=== PATIENT | female | born 1950 | race Caucasian/White ===

== ENCOUNTER 2017-08-26 23:51 | Emergency (ER) | payer OTHER ==
[~2017-08-26] VITALS: Ht 170.2 cm; Wt 108.9 kg
[~2017-08-26 23:51] MED LIST: ACYC200 PO; ALBU3IS INH; ALBU90I INH; ALPR.5 PO; AMOCLA875 PO; AMOX500 PO; ASPI325 PO; ASPI81CH PO; ASPI81EC; ASPI81EC PO; ATOR20 PO; ATOR40TA; ATOR40TA PO; Albuterol Sulf8.5 GM IH; BACL10 PO; BENTYL10 MG PO; BENTYL20 MG PO; BUPR100 PO; BUPR100ER PO; BUPR150ER; BUPR150T2; BUTASPCAF PO; CALCAVITD PO; CALCAVITDA PO; CALGLU500 PO; CARB50 PO; CEPH500 PO; CHOL10002 PO; CIMETIDINE; CIPR500 PO; CLIN300 PO; CLOP75; CLOP75 PO; CODBUTACEC; CYCL10 MT; CYCL10 PO; DIAZ2 PO; DIAZ5 PO; DICY20; DICY20 PO; DIGO.125 PO; DIGO.25; DIGO.25 PO; DIPATR PO; DIPH50 PO; DOXY100 PO; DULO30 PO; ELIQUIS5 MG PO; ESCI10; EZET10-40 PO; FISH1000 PO; FLORINEF PO; FLUD.1; FLUD.1 PO; FOLI1 PO; HYDACE5 PO; HYDACE5325; HYDACE5325 PO; HYDACE7.5 PO; HYDMOR2 PO; HYDR1TAB94 PO; HYOS.125 SL; IBUP800 PO; LEVSOD100 PO; LEVSOD175 PO; LEVSOD200; LEVSOD200 PO; LOVA40; MESA400ER; META800; META800 PO; METCAR500 PO; METO100; METO100 PO; METO25; METO25ER; METO50 PO; METO50ER; METO50ER PO; METPRE4DP PO; METTREX2.5 SC; MULVITA PO; MULVITB&C PO; MULVITMIND PO; NITR.4SL SL; NITR100CA PO; NYST100SU MT; NYST100TC TOP; NYST100TO TOP; Norco 10-325 T1 EACH PO; OMEGA 3 FATTY ACIDS; OMEP20ER PO; ONDA4 PO; ONDA4ODT MM; OXYACE5T; OXYACE5T PO; OXYACE7.5T PO; PENVK500 PO; PRED20 PO; PREDNISONE; PROAIR RESPICL90 MCG INH; PROC10 PO; PROM25 PO; RASUVO 3030 MG/0.6 SC; RXCYCL10 PO; RXERYTOPTH OP; RXHYDMOR2 PO; RXONDA4ODT MM; RXOXYACE PO; Robaxin-750750 MG PO; SIMV10; SIMV40; SIMV40 PO; SIMV80 PO; STOMUL PO; TRAZ100 PO; TRAZ150T57 PO; TRAZODONE HCL; TRIA80TC TOP; VENL150ER PO; VENL75ER PO; Ventolin Soln3 ML INH; [UNRECOGNIZED DRUG - REMARK]
[2017-08-27] MEDS ORDERED: METTREX2.5 (00:08)
[2017-08-27 00:20] LABS: BASOPHILS ABSOLUTE AUTO 0.07 K/mm3 (0.00-0.23); BASOPHILS PERCENT AUTO 1 % (0-2); EOSINOPHILS ABSOLUTE AUTO 0.25 K/mm3 (0.00-0.68); EOSINOPHILS PERCENT AUTO 3 % (0-6); Hematocrit 38.6 % (33.0-51.0); Hemoglobin 13.3 g/dL (11.5-16.0); IMMATURE GRAN ABSOLUTE AUTO 0.03 K/mm3 (0.00-0.10); IMMATURE GRAN PERCENT AUTO 0 % (0-1); LYMPHOCYTES ABSOLUTE AUTO 2.17 K/mm3 (0.84-5.20); LYMPHOCYTES PERCENT AUTO 25 % (21-46); MONOCYTES ABSOLUTE AUTO 0.64 K/mm3 (0.16-1.47); MONOCYTES PERCENT AUTO 7 % (4-13); Mean Corpuscular HGB 32.2 pg (26.0-34.0); Mean Corpuscular HGB Conc 34.5 g/dL (31.5-36.5); Mean Corpuscular Volume 94 fL (80-100); Mean Platelet Volume 9.8 fL (9.1-12.4); NEUTROPHILS ABSOLUTE AUTO 5.46 K/mm3 (1.96-9.15); NEUTROPHILS PERCENT AUTO 63 % (41-73); Platelet Count 319 K/mm3 (150-400); RDW Coefficient Variation 12.8 % (11.7-14.2); RDW Standard Deviation 43.8 fL (35.1-46.3); Red Blood Cell Count 4.13 M/mm3 (3.80-5.20); White Blood Cell Count 8.62 K/mm3 (4.00-11.30)
[2017-08-27 00:41] LABS: Alanine Aminotransfer (ALT/SGP 32 U/L (12-78); Albumin, Blood 3.6 g/dL (3.4-5.0); Albumin/Globulin Ratio 0.9 (0.8-1.8); Alk Phos 59 U/L (50-136); Anion Gap 10 mmol/L (6-16); Aspartate Aminotrans (AST/SGOT 21 U/L (12-37); Bilirubin, Total 0.3 mg/dL (0.1-1.0); Blood Urea Nitrogen 25 mg/dL (8-24); Bun/Creatinine Ratio 19.7 (12.0-20.0); CO2, Blood 22 mmol/L (21-32); Calcium, Blood 8.6 mg/dL (8.5-10.1); Chloride, Blood 104 mmol/L (98-108); Creatinine, Blood 1.27 mg/dL (0.40-1.00); Globulin, Blood 4.2 g/dL (2.2-4.0); Glomerular Filtration Rate 45 (60-); Glucose, Blood 105 mg/dL (70-99); Potassium, Blood 4.5 mmol/L (3.5-5.5); Sodium, Blood 136 mmol/L (136-145); Total Protein, Blood 7.8 g/dL (6.4-8.2); Troponin I <0.015 ng/mL (0.000-0.040)
[2017-08-27] MEDS ORDERED: Protonix40 MG PO (01:02)
== END 2017-08-27 01:44 | disposition home or self-care (01) ==
LOC: ER 23:51
PROVIDERS: Emergency Medicine
DX: I95.1 Orthostatic hypotension (principal); E86.0 Dehydration; K21.9 Gastro-esophageal reflux disease without esophagitis; I48.91 Unspecified atrial fibrillation; E03.9 Hypothyroidism, unspecified; J45.909 Unspecified asthma, uncomplicated; E78.00 Pure hypercholesterolemia, unspecified; Z88.2 Allergy status to sulfonamides; Z88.8 Allergy status to other drugs, medicaments and biological substances; Z88.1 Allergy status to other antibiotic agents; Z91.09 Other allergy status, other than to drugs and biological substances; Z91.030 Bee allergy status; Z79.899 Other long term (current) drug therapy; Z86.73 Personal history of transient ischemic attack (TIA), and cerebral infarction without residual deficits; Z87.891 Personal history of nicotine dependence; W19.XXXA Unspecified fall, initial encounter; Y92.512 Supermarket, store or market as the place of occurrence of the external cause
CPT/HCPCS: 36415; 71046; 80053; 84484; 85025; 93005; 93010; 96360; 99284; J7030

== ENCOUNTER 2017-09-12 20:16 | Emergency (ER) | payer OTHER ==
[~2017-09-12] VITALS: Ht 170.2 cm; Wt 108.9 kg
[~2017-09-12 20:16] MED LIST changes: +METTREX2.5; +Protonix40 MG PO
[2017-09-12 21:04] LABS: BASOPHILS ABSOLUTE AUTO 0.07 K/mm3 (0.00-0.23); BASOPHILS PERCENT AUTO 1 % (0-2); RDW Coefficient Variation 12.6 % (11.7-14.2)
[2017-09-12 21:05] LABS: Source, Urine Clean Catch
[2017-09-12 21:15] LABS: Bilirubin, Urine Neg (Neg); Blood, Urine Neg (Neg); Glucose Qualitative, Urine Neg (Neg); Ketones, Urine Neg (Neg); Leukocyte Esterase, Urine Neg (Neg); Nitrite, Urine Neg (Neg); Protein, Urine Neg (Neg); Specific Gravity, Urine 1.025 (1.003-1.022); Urobilinogen, Urine NORM (Normal)
[2017-09-12 21:17] LABS: EOSINOPHILS ABSOLUTE AUTO 0.17 K/mm3 (0.00-0.68); EOSINOPHILS PERCENT AUTO 2 % (0-6); Hematocrit 42.1 % (33.0-51.0); IMMATURE GRAN ABSOLUTE AUTO 0.05 K/mm3 (0.00-0.10); IMMATURE GRAN PERCENT AUTO 1 % (0-1); LYMPHOCYTES ABSOLUTE AUTO 1.71 K/mm3 (0.84-5.20); LYMPHOCYTES PERCENT AUTO 16 % (21-46); MONOCYTES ABSOLUTE AUTO 0.54 K/mm3 (0.16-1.47); MONOCYTES PERCENT AUTO 5 % (4-13); Mean Corpuscular HGB 31.8 pg (26.0-34.0); Mean Corpuscular HGB Conc 33.3 g/dL (31.5-36.5); Mean Corpuscular Volume 96 fL (80-100); NEUTROPHILS ABSOLUTE AUTO 8.29 K/mm3 (1.96-9.15); NEUTROPHILS PERCENT AUTO 77 % (41-73); Platelet Count 326 K/mm3 (150-400); RDW Standard Deviation 43.8 fL (35.1-46.3); White Blood Cell Count 10.83 K/mm3 (4.00-11.30)
[2017-09-12 21:21] LABS: Appearance, Urine Clear (Clear); Color, Urine Yellow (P-Yellow)
[2017-09-12 21:29] LABS: Albumin, Blood 4.1 g/dL (3.4-5.0); Albumin/Globulin Ratio 0.9 (0.8-1.8); Bilirubin, Total 0.3 mg/dL (0.1-1.0); Bun/Creatinine Ratio 17.8 (12.0-20.0); Calcium, Blood 9.6 mg/dL (8.5-10.1); Creatinine, Blood 1.35 mg/dL (0.40-1.00); Globulin, Blood 4.6 g/dL (2.2-4.0); Potassium, Blood 4.2 mmol/L (3.5-5.5); Total Protein, Blood 8.7 g/dL (6.4-8.2)
== END 2017-09-12 22:05 | disposition home or self-care (01) ==
LOC: ER 20:16
PROVIDERS: Emergency Medicine
DX: S06.0X9A Concussion with loss of consciousness of unspecified duration, initial encounter (principal); W22.8XXA Striking against or struck by other objects, initial encounter; Z88.2 Allergy status to sulfonamides; Z88.8 Allergy status to other drugs, medicaments and biological substances; Z88.1 Allergy status to other antibiotic agents; Z91.030 Bee allergy status; Z79.899 Other long term (current) drug therapy; I48.91 Unspecified atrial fibrillation; E03.9 Hypothyroidism, unspecified; J45.909 Unspecified asthma, uncomplicated; E78.00 Pure hypercholesterolemia, unspecified; Z86.73 Personal history of transient ischemic attack (TIA), and cerebral infarction without residual deficits; Z87.891 Personal history of nicotine dependence
CPT/HCPCS: 36415; 70450; 80053; 81003; 85025; 85730; 99284

== ENCOUNTER 2017-10-01 08:06 | Day surgery (SDC) | payer OTHER ==
[~2017-10-01] VITALS: Ht 170.2 cm; Wt 114.2 kg
[2017-10-01] MEDS ORDERED: HYDSUL200 (08:54)
== END 2017-10-01 10:18 | disposition home or self-care (01) ==
LOC: ORSCSDS 08:06
PROVIDERS: Internal Medicine Gastroenterology
PROC: 0DJ08ZZ Inspection of Upper Intestinal Tract, Via Natural or Artificial Opening Endoscopic (ICD-10-PCS; principal; 2017-10-01 09:30)
DX: R10.13 Epigastric pain (principal); E78.5 Hyperlipidemia, unspecified; E03.9 Hypothyroidism, unspecified; I48.91 Unspecified atrial fibrillation; Z95.0 Presence of cardiac pacemaker; Z86.73 Personal history of transient ischemic attack (TIA), and cerebral infarction without residual deficits; Z86.718 Personal history of other venous thrombosis and embolism; F32.9 Major depressive disorder, single episode, unspecified; I10 Essential (primary) hypertension; E66.9 Obesity, unspecified; Z68.39 Body mass index [BMI] 39.0-39.9, adult; Z87.891 Personal history of nicotine dependence; Z79.899 Other long term (current) drug therapy; Z79.01 Long term (current) use of anticoagulants
CPT/HCPCS: J2250; J7120

== ENCOUNTER 2017-10-08 13:46 | Day surgery (SDC) | payer OTHER ==
[~2017-10-08] VITALS: Ht 170 cm; Wt 112.6 kg
[~2017-10-08 13:46] MED LIST changes: +HYDSUL200
== END 2017-10-08 17:15 | disposition home or self-care (01) ==
LOC: ORSCSDS 13:46
PROVIDERS: Internal Medicine Gastroenterology
PROC: 0DB98ZX Excision of Duodenum, Via Natural or Artificial Opening Endoscopic, Diagnostic (ICD-10-PCS; principal; 2017-10-08 15:30)
PROC: 0DB68ZX Excision of Stomach, Via Natural or Artificial Opening Endoscopic, Diagnostic (ICD-10-PCS; principal; 2017-10-08 15:30)
DX: R10.13 Epigastric pain (principal); K29.50 Unspecified chronic gastritis without bleeding; L93.0 Discoid lupus erythematosus; I48.91 Unspecified atrial fibrillation; Z95.9 Presence of cardiac and vascular implant and graft, unspecified; J45.909 Unspecified asthma, uncomplicated; E78.5 Hyperlipidemia, unspecified; E03.9 Hypothyroidism, unspecified; F32.9 Major depressive disorder, single episode, unspecified; Z86.73 Personal history of transient ischemic attack (TIA), and cerebral infarction without residual deficits; Z86.718 Personal history of other venous thrombosis and embolism; M79.7 Fibromyalgia; Z87.891 Personal history of nicotine dependence; Z79.01 Long term (current) use of anticoagulants; Z79.899 Other long term (current) drug therapy
CPT/HCPCS: J7120

== ENCOUNTER 2017-10-24 16:26 | Emergency (ER) | payer OTHER ==
[~2017-10-24] VITALS: Ht 170.2 cm; Wt 113.4 kg
[2017-10-24 17:06] LABS: BASOPHILS ABSOLUTE AUTO 0.07 K/mm3 (0.00-0.23); BASOPHILS PERCENT AUTO 1 % (0-2); EOSINOPHILS ABSOLUTE AUTO 0.16 K/mm3 (0.00-0.68); EOSINOPHILS PERCENT AUTO 2 % (0-6); Hematocrit 36.7 % (33.0-51.0); Hemoglobin 12.2 g/dL (11.5-16.0); IMMATURE GRAN ABSOLUTE AUTO 0.03 K/mm3 (0.00-0.10); IMMATURE GRAN PERCENT AUTO 0 % (0-1); LYMPHOCYTES ABSOLUTE AUTO 1.57 K/mm3 (0.84-5.20); LYMPHOCYTES PERCENT AUTO 20 % (21-46); MONOCYTES ABSOLUTE AUTO 0.56 K/mm3 (0.16-1.47); MONOCYTES PERCENT AUTO 7 % (4-13); Mean Corpuscular HGB 31.6 pg (26.0-34.0); Mean Corpuscular HGB Conc 33.2 g/dL (31.5-36.5); Mean Corpuscular Volume 95 fL (80-100); Mean Platelet Volume 9.9 fL (9.1-12.4); NEUTROPHILS ABSOLUTE AUTO 5.56 K/mm3 (1.96-9.15); NEUTROPHILS PERCENT AUTO 70 % (41-73); Platelet Count 269 K/mm3 (150-400); RDW Coefficient Variation 12.5 % (11.7-14.2); Red Blood Cell Count 3.86 M/mm3 (3.80-5.20); White Blood Cell Count 7.95 K/mm3 (4.00-11.30)
[2017-10-24 17:18] LABS: Albumin, Blood 3.7 g/dL (3.4-5.0); Albumin/Globulin Ratio 0.9 (0.8-1.8); Bilirubin, Total 0.3 mg/dL (0.1-1.0); Bun/Creatinine Ratio 21.1 (12.0-20.0); Calcium, Blood 9.3 mg/dL (8.5-10.1); Creatinine, Blood 1.23 mg/dL (0.40-1.00); Globulin, Blood 3.9 g/dL (2.2-4.0); Potassium, Blood 4.3 mmol/L (3.5-5.5); Total Protein, Blood 7.6 g/dL (6.4-8.2)
[2017-10-24] MEDS ORDERED: Protonix40 MG PO (20:08)
[2017-10-24] MEDS ORDERED: Dazidox10 MG PO (20:08)
== END 2017-10-24 20:20 | disposition home or self-care (01) ==
LOC: ER 16:26
PROVIDERS: Internal Medicine
DX: R10.11 Right upper quadrant pain (principal); G89.29 Other chronic pain; R10.13 Epigastric pain; Z88.2 Allergy status to sulfonamides; Z88.8 Allergy status to other drugs, medicaments and biological substances; Z88.5 Allergy status to narcotic agent; Z91.030 Bee allergy status; Z79.899 Other long term (current) drug therapy; Z79.2 Long term (current) use of antibiotics; I48.91 Unspecified atrial fibrillation; G43.909 Migraine, unspecified, not intractable, without status migrainosus; E03.9 Hypothyroidism, unspecified; J45.909 Unspecified asthma, uncomplicated; E78.00 Pure hypercholesterolemia, unspecified; Z87.891 Personal history of nicotine dependence
CPT/HCPCS: 36415; 74176; 80053; 83690; 85025; 96374; 96375; 99284; J0780; J1200; J3010

== ENCOUNTER 2017-11-17 20:13 | Emergency (ER) | payer OTHER ==
[~2017-11-17] VITALS: Ht 170.2 cm; Wt 113.4 kg
[~2017-11-17 20:13] MED LIST changes: +Dazidox10 MG PO
[2017-11-17 21:22] LABS: BASOPHILS ABSOLUTE AUTO 0.08 K/mm3 (0.00-0.23); BASOPHILS PERCENT AUTO 1 % (0-2); EOSINOPHILS ABSOLUTE AUTO 0.25 K/mm3 (0.00-0.68); EOSINOPHILS PERCENT AUTO 3 % (0-6); Hematocrit 37.3 % (33.0-51.0); Hemoglobin 12.4 g/dL (11.5-16.0); IMMATURE GRAN ABSOLUTE AUTO 0.04 K/mm3 (0.00-0.10); IMMATURE GRAN PERCENT AUTO 1 % (0-1); LYMPHOCYTES ABSOLUTE AUTO 1.61 K/mm3 (0.84-5.20); LYMPHOCYTES PERCENT AUTO 21 % (21-46); MONOCYTES ABSOLUTE AUTO 0.64 K/mm3 (0.16-1.47); MONOCYTES PERCENT AUTO 8 % (4-13); Mean Corpuscular HGB 32.1 pg (26.0-34.0); Mean Corpuscular HGB Conc 33.2 g/dL (31.5-36.5); Mean Corpuscular Volume 97 fL (80-100); Mean Platelet Volume 9.9 fL (9.1-12.4); NEUTROPHILS ABSOLUTE AUTO 5.17 K/mm3 (1.96-9.15); NEUTROPHILS PERCENT AUTO 66 % (41-73); Platelet Count 295 K/mm3 (150-400); RDW Coefficient Variation 13.3 % (11.7-14.2); RDW Standard Deviation 46.9 fL (35.1-46.3); Red Blood Cell Count 3.86 M/mm3 (3.80-5.20); White Blood Cell Count 7.79 K/mm3 (4.00-11.30)
[2017-11-17 21:41] LABS: Albumin, Blood 3.5 g/dL (3.4-5.0); Albumin/Globulin Ratio 0.8 (0.8-1.8); Bilirubin, Total 0.1 mg/dL (0.1-1.0); Bun/Creatinine Ratio 19.5 (12.0-20.0); Creatinine, Blood 1.33 mg/dL (0.40-1.00); Globulin, Blood 4.3 g/dL (2.2-4.0); Potassium, Blood 4.5 mmol/L (3.5-5.5); Total Protein, Blood 7.8 g/dL (6.4-8.2)
== END 2017-11-17 23:35 | disposition home or self-care (01) ==
LOC: ER 20:13
PROVIDERS: Emergency Medicine
DX: K55.1 Chronic vascular disorders of intestine (principal); I48.91 Unspecified atrial fibrillation; E03.9 Hypothyroidism, unspecified; J45.909 Unspecified asthma, uncomplicated; E78.00 Pure hypercholesterolemia, unspecified; Z86.73 Personal history of transient ischemic attack (TIA), and cerebral infarction without residual deficits; Z88.2 Allergy status to sulfonamides; Z88.8 Allergy status to other drugs, medicaments and biological substances; Z88.1 Allergy status to other antibiotic agents; Z91.09 Other allergy status, other than to drugs and biological substances; Z88.5 Allergy status to narcotic agent; Z91.030 Bee allergy status; Z79.899 Other long term (current) drug therapy; Z87.891 Personal history of nicotine dependence
CPT/HCPCS: 36415; 80053; 83605; 83690; 85025; 96361; 96374; 96375; 99284; J2765; J3010; J7030

== ENCOUNTER 2017-11-29 13:18 | Day surgery (SDC) | payer OTHER ==
[~2017-11-29] VITALS: Ht 170.2 cm; Wt 51.7 kg
[2017-11-29] MEDS ORDERED: METO100ER (13:43)
[2017-11-29] MEDS ORDERED: PROM25 (13:44)
== END 2017-11-29 15:02 | disposition home or self-care (01) ==
LOC: ORSCSDS 13:18
PROVIDERS: Internal Medicine Gastroenterology
PROC: 0DBL8ZX Excision of Transverse Colon, Via Natural or Artificial Opening Endoscopic, Diagnostic (ICD-10-PCS; principal; 2017-11-29 14:45)
DX: R10.84 Generalized abdominal pain (principal); D12.3 Benign neoplasm of transverse colon; K64.8 Other hemorrhoids; K57.30 Diverticulosis of large intestine without perforation or abscess without bleeding; Z83.71 Family history of colonic polyps; M32.9 Systemic lupus erythematosus, unspecified; I48.91 Unspecified atrial fibrillation; J45.909 Unspecified asthma, uncomplicated; E78.5 Hyperlipidemia, unspecified; E03.9 Hypothyroidism, unspecified; F32.9 Major depressive disorder, single episode, unspecified; Z86.73 Personal history of transient ischemic attack (TIA), and cerebral infarction without residual deficits; Z86.718 Personal history of other venous thrombosis and embolism; M79.7 Fibromyalgia; Z87.891 Personal history of nicotine dependence; Z79.01 Long term (current) use of anticoagulants; Z79.899 Other long term (current) drug therapy
CPT/HCPCS: 88305; J7120

== ENCOUNTER 2018-01-06 20:38 | Observation (INO) | payer OTHER ==
[~2018-01-06] VITALS: Ht 170.2 cm; Wt 114.5 kg
[~2018-01-06 20:38] MED LIST changes: -HYDSUL200; +HYDSUL200 PO; +METO100ER PO; +PROM25
[2018-01-06 21:36] LABS: BASOPHILS ABSOLUTE AUTO 0.06 K/mm3 (0.00-0.23); BASOPHILS PERCENT AUTO 1 % (0-2); EOSINOPHILS ABSOLUTE AUTO 0.25 K/mm3 (0.00-0.68); EOSINOPHILS PERCENT AUTO 3 % (0-6); Hematocrit 38.5 % (33.0-51.0); Hemoglobin 13.1 g/dL (11.5-16.0); IMMATURE GRAN ABSOLUTE AUTO 0.03 K/mm3 (0.00-0.10); IMMATURE GRAN PERCENT AUTO 0 % (0-1); LYMPHOCYTES ABSOLUTE AUTO 2.14 K/mm3 (0.84-5.20); LYMPHOCYTES PERCENT AUTO 24 % (21-46); MONOCYTES PERCENT AUTO 4 % (4-13); Mean Corpuscular HGB 32.3 pg (26.0-34.0); Mean Corpuscular Volume 95 fL (80-100); Mean Platelet Volume 9.4 fL (9.1-12.4); NEUTROPHILS ABSOLUTE AUTO 6.18 K/mm3 (1.96-9.15); NEUTROPHILS PERCENT AUTO 68 % (41-73); Platelet Count 347 K/mm3 (150-400); Red Blood Cell Count 4.06 M/mm3 (3.80-5.20); White Blood Cell Count 9.06 K/mm3 (4.00-11.30)
[2018-01-06 21:55] LABS: Alanine Aminotransfer (ALT/SGP 32 U/L (12-78); Albumin, Blood 3.7 g/dL (3.4-5.0); Albumin/Globulin Ratio 0.9 (0.8-1.8); Alk Phos 53 U/L (50-136); Anion Gap 11 mmol/L (6-16); Aspartate Aminotrans (AST/SGOT 23 U/L (12-37); Bilirubin, Total 0.2 mg/dL (0.1-1.0); Blood Urea Nitrogen 24 mg/dL (8-24); Bun/Creatinine Ratio 21.1 (12.0-20.0); CO2, Blood 22 mmol/L (21-32); Chloride, Blood 104 mmol/L (98-108); Creatinine, Blood 1.14 mg/dL (0.40-1.00); Globulin, Blood 4.2 g/dL (2.2-4.0); Glomerular Filtration Rate 51 (60-); Glucose, Blood 135 mg/dL (70-99); Potassium, Blood 4.1 mmol/L (3.5-5.5); Sodium, Blood 137 mmol/L (136-145); Total Protein, Blood 7.9 g/dL (6.4-8.2)
[2018-01-06 23:58] LABS: Source, Urine Clean Catch
[2018-01-07 00:06] LABS: Bilirubin, Urine Neg (Neg); Blood, Urine Neg (Neg); Glucose Qualitative, Urine Neg (Neg); Ketones, Urine Neg (Neg); Leukocyte Esterase, Urine Neg (Neg); Nitrite, Urine Neg (Neg); Protein, Urine Neg (Neg); Specific Gravity, Urine 1.015 (1.003-1.022); Urobilinogen, Urine NORM (Normal)
[2018-01-07 00:08] LABS: Appearance, Urine Clear (Clear); Color, Urine Yellow (P-Yellow)
[2018-01-07 01:01] LABS: CHOL/HDL RATIO 4.5; Cholesterol 181 mg/dL (50-200); HDL Cholesterol 40 mg/dL (>39); LDL/HDL RATIO 1.6; Low Density Lipoprotein Chol 65 mg/dL (0-110); Triglycerides 379 mg/dL (30-160); Very Low Density Lipoprot Chol 75 mg/dL (6-32)
[2018-01-07] MEDS ORDERED: OXYC5 (01:55)
[2018-01-07 04:43] LABS: Hemoglobin 11.8 g/dL (11.5-16.0); Mean Corpuscular HGB 32.1 pg (26.0-34.0); Mean Corpuscular HGB Conc 32.8 g/dL (31.5-36.5); Mean Platelet Volume 9.5 fL (9.1-12.4); Platelet Count 257 K/mm3 (150-400); RDW Coefficient Variation 12.9 % (11.7-14.2); RDW Standard Deviation 46.5 fL (35.1-46.3); Red Blood Cell Count 3.68 M/mm3 (3.80-5.20); White Blood Cell Count 8.57 K/mm3 (4.00-11.30)
[2018-01-07 04:46] LABS: Mean Corpuscular Volume 98 fL (80-100)
[2018-01-07 05:14] LABS: Albumin, Blood 3.2 g/dL (3.4-5.0); Albumin/Globulin Ratio 0.9 (0.8-1.8); Bilirubin, Total 0.2 mg/dL (0.1-1.0); Bun/Creatinine Ratio 19.4 (12.0-20.0); Calcium, Blood 8.4 mg/dL (8.5-10.1); Creatinine, Blood 1.03 mg/dL (0.40-1.00); Globulin, Blood 3.7 g/dL (2.2-4.0); Potassium, Blood 4.2 mmol/L (3.5-5.5); Total Protein, Blood 6.9 g/dL (6.4-8.2)
[2018-01-08 04:17] LABS: BASOPHILS ABSOLUTE AUTO 0.05 K/mm3 (0.00-0.23); BASOPHILS PERCENT AUTO 1 % (0-2); EOSINOPHILS ABSOLUTE AUTO 0.33 K/mm3 (0.00-0.68); EOSINOPHILS PERCENT AUTO 4 % (0-6); Hematocrit 35.2 % (33.0-51.0); Hemoglobin 11.6 g/dL (11.5-16.0); IMMATURE GRAN ABSOLUTE AUTO 0.02 K/mm3 (0.00-0.10); IMMATURE GRAN PERCENT AUTO 0 % (0-1); LYMPHOCYTES ABSOLUTE AUTO 1.84 K/mm3 (0.84-5.20); LYMPHOCYTES PERCENT AUTO 24 % (21-46); MONOCYTES ABSOLUTE AUTO 0.52 K/mm3 (0.16-1.47); MONOCYTES PERCENT AUTO 7 % (4-13); Mean Corpuscular HGB 31.5 pg (26.0-34.0); Mean Corpuscular Volume 96 fL (80-100); Mean Platelet Volume 9.3 fL (9.1-12.4); NEUTROPHILS ABSOLUTE AUTO 4.91 K/mm3 (1.96-9.15); NEUTROPHILS PERCENT AUTO 64 % (41-73); Platelet Count 239 K/mm3 (150-400); RDW Standard Deviation 45.2 fL (35.1-46.3); Red Blood Cell Count 3.68 M/mm3 (3.80-5.20); White Blood Cell Count 7.67 K/mm3 (4.00-11.30)
[2018-01-08 04:32] LABS: International Normalized Ratio 1.05; Prothrombin Time Results 10.8 Sec (9.7-11.5)
[2018-01-08 04:43] LABS: Alanine Aminotransfer (ALT/SGP 27 U/L (12-78); Albumin, Blood 3.4 g/dL (3.4-5.0); Albumin/Globulin Ratio 0.9 (0.8-1.8); Alk Phos 47 U/L (50-136); Anion Gap 7 mmol/L (6-16); Aspartate Aminotrans (AST/SGOT 22 U/L (12-37); Bilirubin, Total 0.4 mg/dL (0.1-1.0); Blood Urea Nitrogen 14 mg/dL (8-24); CO2, Blood 26 mmol/L (21-32); Calcium, Blood 8.6 mg/dL (8.5-10.1); Chloride, Blood 106 mmol/L (98-108); Creatinine, Blood 0.93 mg/dL (0.40-1.00); Globulin, Blood 3.9 g/dL (2.2-4.0); Glomerular Filtration Rate >60 (60-); Glucose, Blood 85 mg/dL (70-99); Sodium, Blood 139 mmol/L (136-145); Total Protein, Blood 7.3 g/dL (6.4-8.2)
[2018-01-09 05:05] LABS: BASOPHILS ABSOLUTE AUTO 0.03 K/mm3 (0.00-0.23); BASOPHILS PERCENT AUTO 0 % (0-2); EOSINOPHILS ABSOLUTE AUTO 0.19 K/mm3 (0.00-0.68); EOSINOPHILS PERCENT AUTO 2 % (0-6); Hematocrit 34.4 % (33.0-51.0); Hemoglobin 11.1 g/dL (11.5-16.0); IMMATURE GRAN ABSOLUTE AUTO 0.03 K/mm3 (0.00-0.10); IMMATURE GRAN PERCENT AUTO 0 % (0-1); LYMPHOCYTES ABSOLUTE AUTO 1.74 K/mm3 (0.84-5.20); LYMPHOCYTES PERCENT AUTO 21 % (21-46); MONOCYTES PERCENT AUTO 7 % (4-13); Mean Corpuscular HGB Conc 32.3 g/dL (31.5-36.5); Mean Corpuscular Volume 96 fL (80-100); Mean Platelet Volume 9.8 fL (9.1-12.4); NEUTROPHILS ABSOLUTE AUTO 5.72 K/mm3 (1.96-9.15); NEUTROPHILS PERCENT AUTO 69 % (41-73); Platelet Count 250 K/mm3 (150-400); RDW Coefficient Variation 12.8 % (11.7-14.2); RDW Standard Deviation 45.1 fL (35.1-46.3); Red Blood Cell Count 3.58 M/mm3 (3.80-5.20); White Blood Cell Count 8.31 K/mm3 (4.00-11.30)
[2018-01-09 05:22] LABS: Albumin/Globulin Ratio 0.9 (0.8-1.8); Bilirubin, Total 0.3 mg/dL (0.1-1.0); Bun/Creatinine Ratio 13.2 (12.0-20.0); Calcium, Blood 8.3 mg/dL (8.5-10.1); Creatinine, Blood 1.06 mg/dL (0.40-1.00); Globulin, Blood 3.5 g/dL (2.2-4.0); Potassium, Blood 4.1 mmol/L (3.5-5.5); Total Protein, Blood 6.5 g/dL (6.4-8.2)
[2018-01-09] MEDS ORDERED: MILK OF MAGNESIA PO (10:44)
== END 2018-01-09 11:35 | disposition home or self-care (01) ==
LOC: ER 20:38 → SURS 01-07 00:23
PROVIDERS: Emergency Medicine; Internal Medicine; Surgery
PROC: 0FT44ZZ Resection of Gallbladder, Percutaneous Endoscopic Approach (ICD-10-PCS; principal; 2018-01-06)
PROC: BF03YZZ Plain Radiography of Gallbladder and Bile Ducts using Other Contrast (ICD-10-PCS; 2018-01-06)
DX: K81.1 Chronic cholecystitis (principal); K85.90 Acute pancreatitis without necrosis or infection, unspecified; N18.2 Chronic kidney disease, stage 2 (mild); I48.0 Paroxysmal atrial fibrillation; R74.8 Abnormal levels of other serum enzymes; M35.00 Sjogren syndrome, unspecified; M06.9 Rheumatoid arthritis, unspecified; I49.5 Sick sinus syndrome; I73.9 Peripheral vascular disease, unspecified; F17.210 Nicotine dependence, cigarettes, uncomplicated; Z86.73 Personal history of transient ischemic attack (TIA), and cerebral infarction without residual deficits; Z79.899 Other long term (current) drug therapy; Z88.1 Allergy status to other antibiotic agents; Z88.2 Allergy status to sulfonamides; Z91.041 Radiographic dye allergy status; Z88.8 Allergy status to other drugs, medicaments and biological substances; Z79.01 Long term (current) use of anticoagulants
CPT/HCPCS: 36415; 74300; 76705; 80053; 80061; 81003; 83605; 83690; 85025; 85027; 85610; 88304; 93005; 93010; 94760; 96361; 96372; 96374; 96375; 96376; 99285-25; C1729; C9113; G0378; J0694; J1200; J1650; J1720; J1885; J2550; J2710; J2765; J3010; J7030; J7120

== ENCOUNTER 2018-06-05 18:08 | Emergency (ER) | payer MEDICARE ==
[~2018-06-05] VITALS: Ht 170.2 cm; Wt 106.6 kg
[~2018-06-05 18:08] MED LIST changes: +LIDO700A20 TOP; +MILK OF MAGNESIA PO; +OXYC5; +Percocet 5-3251 EACH PO
[2018-06-05 19:04] LABS: BASOPHILS ABSOLUTE AUTO 0.07 K/mm3 (0.00-0.23); BASOPHILS PERCENT AUTO 1 % (0-2); EOSINOPHILS ABSOLUTE AUTO 0.28 K/mm3 (0.00-0.68); EOSINOPHILS PERCENT AUTO 3 % (0-6); Hematocrit 40.1 % (33.0-51.0); Hemoglobin 13.4 g/dL (11.5-16.0); IMMATURE GRAN ABSOLUTE AUTO 0.03 K/mm3 (0.00-0.10); IMMATURE GRAN PERCENT AUTO 0 % (0-1); LYMPHOCYTES ABSOLUTE AUTO 1.58 K/mm3 (0.84-5.20); LYMPHOCYTES PERCENT AUTO 16 % (21-46); MONOCYTES ABSOLUTE AUTO 0.65 K/mm3 (0.16-1.47); MONOCYTES PERCENT AUTO 7 % (4-13); Mean Corpuscular HGB 32.4 pg (26.0-34.0); Mean Corpuscular HGB Conc 33.4 g/dL (31.5-36.5); Mean Corpuscular Volume 97 fL (80-100); Mean Platelet Volume 9.8 fL (9.1-12.4); NEUTROPHILS ABSOLUTE AUTO 7.01 K/mm3 (1.96-9.15); NEUTROPHILS PERCENT AUTO 73 % (41-73); Platelet Count 286 K/mm3 (150-400); RDW Coefficient Variation 13.4 % (11.7-14.2); RDW Standard Deviation 47.8 fL (35.1-46.3); Red Blood Cell Count 4.13 M/mm3 (3.80-5.20); White Blood Cell Count 9.62 K/mm3 (4.00-11.30)
[2018-06-05 19:47] LABS: Albumin, Blood 3.7 g/dL (3.4-5.0); Albumin/Globulin Ratio 0.9 (0.8-1.8); Bilirubin, Total 0.2 mg/dL (0.1-1.0); Bun/Creatinine Ratio 16.9 (12.0-20.0); Calcium, Blood 8.6 mg/dL (8.5-10.1); Creatinine, Blood 1.18 mg/dL (0.40-1.00); Globulin, Blood 4.1 g/dL (2.2-4.0); Potassium, Blood 4.1 mmol/L (3.5-5.5); Total Protein, Blood 7.8 g/dL (6.4-8.2)
[2018-06-05] MEDS ORDERED: METPRE4DP PO (23:13)
== END 2018-06-05 23:32 | disposition home or self-care (01) ==
LOC: ER 18:08
PROVIDERS: Physician Assistant
DX: K62.5 Hemorrhage of anus and rectum (principal); Z88.2 Allergy status to sulfonamides; Z91.030 Bee allergy status; Z88.1 Allergy status to other antibiotic agents; Z88.5 Allergy status to narcotic agent; Z79.899 Other long term (current) drug therapy; G43.909 Migraine, unspecified, not intractable, without status migrainosus; I48.91 Unspecified atrial fibrillation; E03.9 Hypothyroidism, unspecified; J45.909 Unspecified asthma, uncomplicated; E78.5 Hyperlipidemia, unspecified; Z86.73 Personal history of transient ischemic attack (TIA), and cerebral infarction without residual deficits; Z87.891 Personal history of nicotine dependence
CPT/HCPCS: 36415; 74176; 80053; 83690; 85025; 86850; 86900; 86901; 93005; 93010; 99284-25

== ENCOUNTER 2018-07-31 10:59 | Inpatient (IN) | payer MEDICARE, OTHER ==
[~2018-07-31] VITALS: Ht 170.2 cm; Wt 107.0 kg
[~2018-07-31 10:59] MED LIST changes: -ACYC200 PO; -ATOR40TA PO; -ELIQUIS5 MG PO; -HYDSUL200 PO; -METO100ER PO; -OXYC5
[2018-07-31 11:47] LABS: BASOPHILS ABSOLUTE AUTO 0.07 K/mm3 (0.00-0.23); BASOPHILS PERCENT AUTO 1 % (0-2); EOSINOPHILS ABSOLUTE AUTO 0.19 K/mm3 (0.00-0.68); EOSINOPHILS PERCENT AUTO 3 % (0-6); Hematocrit 38.8 % (33.0-51.0); Hemoglobin 12.9 g/dL (11.5-16.0); IMMATURE GRAN ABSOLUTE AUTO 0.02 K/mm3 (0.00-0.10); IMMATURE GRAN PERCENT AUTO 0 % (0-1); LYMPHOCYTES ABSOLUTE AUTO 1.12 K/mm3 (0.84-5.20); LYMPHOCYTES PERCENT AUTO 16 % (21-46); MONOCYTES ABSOLUTE AUTO 0.46 K/mm3 (0.16-1.47); MONOCYTES PERCENT AUTO 7 % (4-13); Mean Corpuscular HGB Conc 33.2 g/dL (31.5-36.5); Mean Corpuscular Volume 96 fL (80-100); Mean Platelet Volume 9.4 fL (9.1-12.4); NEUTROPHILS PERCENT AUTO 73 % (41-73); Platelet Count 319 K/mm3 (150-400); RDW Coefficient Variation 13.2 % (11.7-14.2); RDW Standard Deviation 47.4 fL (35.1-46.3); Red Blood Cell Count 4.03 M/mm3 (3.80-5.20); White Blood Cell Count 6.86 K/mm3 (4.00-11.30)
[2018-07-31 12:04] LABS: International Normalized Ratio 1.03; Prothrombin Time Results 10.9 Sec (9.7-11.5)
[2018-07-31 12:09] LABS: Alanine Aminotransfer (ALT/SGP 20 U/L (12-78); Albumin, Blood 3.5 g/dL (3.4-5.0); Albumin/Globulin Ratio 0.9 (0.8-1.8); Alk Phos 59 U/L (50-136); Anion Gap 10 mmol/L (6-16); Aspartate Aminotrans (AST/SGOT 18 U/L (12-37); Bilirubin, Total 0.3 mg/dL (0.1-1.0); Blood Urea Nitrogen 16 mg/dL (8-24); Bun/Creatinine Ratio 17.8 (12.0-20.0); CO2, Blood 22 mmol/L (21-32); Calcium, Blood 8.9 mg/dL (8.5-10.1); Chloride, Blood 109 mmol/L (98-108); Globulin, Blood 3.9 g/dL (2.2-4.0); Glomerular Filtration Rate >60 (60-); Glucose, Blood 92 mg/dL (70-99); Potassium, Blood 4.2 mmol/L (3.5-5.5); Sodium, Blood 141 mmol/L (136-145); Total Protein, Blood 7.4 g/dL (6.4-8.2)
[2018-07-31 12:11] LABS: Source, Urine Clean Catch
[2018-07-31 12:20] LABS: Bilirubin, Urine Neg (Neg); Blood, Urine 1+ (Neg); Glucose Qualitative, Urine Neg (Neg); Ketones, Urine Neg (Neg); Leukocyte Esterase, Urine Neg (Neg); Nitrite, Urine Neg (Neg); Protein, Urine Neg (Neg); Urobilinogen, Urine NORM (Normal)
[2018-07-31 12:46] LABS: Appearance, Urine Clear (Clear); Color, Urine Yellow (P-Yellow)
[2018-07-31 12:49] LABS: Bacteria Few /hpf; Squamous Epithelial Cells Few /hpf (Few); White Blood Cells, Urine 0-2 /hpf (0-5)
[2018-07-31] MEDS ORDERED: **INCOMPLETE MED REC (15:47)
[2018-07-31] MEDS ORDERED: ACYC400 PO (15:49)
[2018-07-31] MEDS ORDERED: ELIQUIS5 MG PO (15:50)
[2018-07-31] MEDS ORDERED: ATOR40TA PO (15:50)
[2018-07-31] MEDS ORDERED: Cymbalta60 MG PO (15:51)
[2018-07-31] MEDS ORDERED: HYDSUL200 PO (15:52)
[2018-07-31] MEDS ORDERED: METO50 PO (15:53)
[2018-07-31] MEDS ORDERED: BACL10 PO (15:58)
[2018-07-31] MEDS ORDERED: OXYC5 PO (16:00)
[2018-07-31] MEDS ORDERED: Amox Tr-K Clv1 EAC2 PO (16:00)
[2018-07-31] MEDS ORDERED: LIDOCAINE1 EACH TOP (16:04)
[2018-07-31 19:53] LABS: Source, Urine Clean Catch
[2018-07-31 20:19] LABS: Bilirubin, Urine Neg (Neg); Blood, Urine 1+ (Neg); Glucose Qualitative, Urine Neg (Neg); Ketones, Urine Neg (Neg); Leukocyte Esterase, Urine Neg (Neg); Nitrite, Urine Neg (Neg); Protein, Urine Neg (Neg); Urobilinogen, Urine NORM (Normal)
[2018-07-31 20:42] LABS: Appearance, Urine Clear (Clear); Bacteria Rare /hpf; Color, Urine Yellow (P-Yellow); Red Blood Cells, Urine 0-2 /hpf (0-2); Squamous Epithelial Cells Few /hpf (Few); White Blood Cells, Urine Rare /hpf (0-5)
[2018-07-31 20:57] LABS: U Amphetamine Screen Not Detected; U Barbituate Screen Not Detected; U Benzodiazapine Screen Not Detected; U Buprenorphine Screen Not Detected; U Cannabinoids Screen Not Detected; U Cocaine Screen Not Detected; U Methadone Screen Not Detected; U Methamphetamine Screen Not Detected; U Opiates Screen Not Detected; U Oxycodone Screen DETECTED; U Phencyclidine Screen Not Detected; U Propoxyphene Screen Not Detected
[2018-07-31] MEDS ORDERED: FOLI1 PO (21:32)
[2018-07-31] MEDS ORDERED: LEVSOD100 PO (21:32)
[2018-07-31] MEDS ORDERED: VENL75ER PO (21:34)
[2018-07-31] MEDS ORDERED: PAROEX473 ML MM (21:37)
[2018-08-01 05:20] LABS: Hematocrit 36.2 % (33.0-51.0); Hemoglobin 11.9 g/dL (11.5-16.0); Mean Corpuscular HGB 32.4 pg (26.0-34.0); Mean Corpuscular HGB Conc 32.9 g/dL (31.5-36.5); Mean Platelet Volume 9.4 fL (9.1-12.4); Platelet Count 272 K/mm3 (150-400); RDW Coefficient Variation 13.3 % (11.7-14.2); RDW Standard Deviation 47.5 fL (35.1-46.3); Red Blood Cell Count 3.67 M/mm3 (3.80-5.20); White Blood Cell Count 6.25 K/mm3 (4.00-11.30)
[2018-08-01 05:23] LABS: Mean Corpuscular Volume 99 fL (80-100)
[2018-08-01 05:46] LABS: Anion Gap 9 mmol/L (6-16); Blood Urea Nitrogen 17 mg/dL (8-24); Bun/Creatinine Ratio 17.9 (12.0-20.0); CO2, Blood 22 mmol/L (21-32); Calcium, Blood 8.6 mg/dL (8.5-10.1); Chloride, Blood 110 mmol/L (98-108); Creatinine, Blood 0.95 mg/dL (0.40-1.00); Glomerular Filtration Rate >60 (60-); Glucose, Blood 91 mg/dL (70-99); Potassium, Blood 4.1 mmol/L (3.5-5.5); Sodium, Blood 141 mmol/L (136-145)
--- NOTE | 2018-08-01 07:36 | NUR ---
SHIFT SUMMARY PT SLEPT WELL T/O NIGHT. AOX4. IS NON-VERBAL BUT IS ABLE TO WRITE DOWN ANSWERS TO QUESTIONS & FOLLOW DIRECTIONS. VSS. DENIES SOB OR N/V. REPORTED 9/10 PAIN IN LOWER BACK/LUMBAR THIS AM & HAD DR. GRAMAJO CHANGE OXYCODONE TO 10MG WHICH IS HER HOME DOSE & ALSO ORDERED KPAD SINCE PT USUALLY USES A HEAT PAD @HOME. WHEN JUSTICE REASSESSED PT STATED PAIN HAD DROPPED TO A 5/10. PT RLE IS VERY WEAK W/PEDAL PUSHES COMPARED TO LLE. RUE DIETITIAN CHIEF ARE ONLY SLIGHLY WEAKER THAN LUE. PT HAS BEEN CONTINENT OF URINE & IS 1 ASSIST TO BSC. CALL LIGHT IS IN REACH & PT USES IT APPROPRIATELY.
[2018-08-01 14:41] LABS: CHOL/HDL RATIO 3.6; Cholesterol 148 mg/dL (50-200); HDL Cholesterol 41 mg/dL (>39); LDL/HDL RATIO 1.9; Low Density Lipoprotein Chol 78 mg/dL (0-110); Triglycerides 146 mg/dL (30-160); Very Low Density Lipoprot Chol 29 mg/dL (6-32)
--- NOTE | 2018-08-01 17:33 | NUR ---
SHIFT SUMMARY PATIENT A&O X4. NEURO CHECKS Q4 WNL. R SIDED WEAKNESS PRESENT. MEDICATED PER E JUL FOR CHRONIC BACK PAIN. DENIES SOB. PATIENT IS VERBAL THIS SHIFT, STATES SHE WOKE UP AND WAS ABLE TO SPEAK. NO ACUTE CHANGES. RN WILL CONTINUE TO MONITOR.
--- NOTE | 2018-08-02 04:28 | NUR ---
67 year old Female who was hospitalized in [facility] for 12 days dc on signed release for medical records for [facility] & [facility] and dc summary. PT has chronic pain and uses oxycodone and lidocaine patches x 2 to lt lower back and sciatic area baseline. also uses muscle relaxant and neurontin. up with standby assist to ambulate to bathroom several times with steady gait. mild rt ue and rt le weakness on q 8 hour neuro assessment. No problems with speech or swallow noted. PT up several hours after pain medication reading and denies any vision changes. hx of multiple surgeries including pacemaker placement x 4 and back and le orthopedic surgery. 100% AV paced dual chamber rate is in 70.
--- NOTE | 2018-08-02 05:18 | NUR ---
pt continues to co lt low back and lt sciatic pain . roxicodone 10 mg given and had kpad for comfort which popped and pt up to bathroom and had steady gait. no new neuro deficits improving strenght and speech wnl for pt with hx of old cva. await medical records from [facility] recent 12 day stay.
--- NOTE | 2018-08-02 14:02 | NUR ---
TENS UNIT SPOKE WITH P.T. REGARDING A TENS UNIT FOR PT BACK PAIN. PER PT WE DO NOT HAVE ANY IN THE HOSPITAL. DR AVILES NOTIFIED. NO NEW ORDERS
--- NOTE | 2018-08-02 18:10 | NUR ---
NO ACUTE CHANGES, PT REMAINS WITH MILD RIGHT SIDED WEAKNESS, C/O OF ACUTE BACK PAIN. MEDICATED PER EMAR. PT REPORTS SOME RELIEF AFTER SHOWER THIS AFTERNOON. TELE DISCONTINUED TODAY, IV BECAME WET WITH SHOWER AND NON PATENT AFTER SHOWER. REMOVED. INSERTION SITE WNL. NO IV AT THIS TIME. WILL CONTINUE TO MONITOR AND REPORT TO ONCOMING RN.
--- NOTE | 2018-08-03 14:55 | NUR ---
1455 PT CALLING OUT FROM BATHROOM, SITTING ON TOILET, SAYS SHE "LOST CONSIOUSNESS". PT IS MOANING, RESPIRATIONS INCREASED TO 36, BP, HR AND TEMP WNL. PT WANTING TO "SIT ON THE FLOOR". CHAIR PROVIDED AND PT ASSISTED UP FROM TOILET TO CHAIR. PT VERY WEAK, REQUIRED 2 PERSON ASSIST. PT C/O "POUNDING" HEAD, NECK PAIN, AND NAUSEA. 1520 DR AVILES CALLED WHILE PT SITTING IN CHAIR. ORDERS OBTAINED FOR PO ATIVAN. 1528 PT ASSISTED BACK OVER SEVERAL MINUTES SHE WAS NOT BEARING HER WEIGHT WELL, VS WNL EXCEPT RESP WHICH REMAINED ELEVATED. 1536 DR AVILES CALLED AGAIN AND MESSAGE LEFT ON HER VOICE MAIL PT NOT IMRPOVING. 1544 DR AVILES AT BEDSIDE VISITING WITH PT AT THIS TIME.
--- NOTE | 2018-08-03 17:15 | NUR ---
PT CALMER AND IS BEARING WEIGHT AND TRANSFERRING TO BEDSIDE COMMODE. MEDICATED FOR PAIN PER EMAR, NO ATIVAN GIVEN AT THIS TIME. WILL MONITOR
--- NOTE | 2018-08-04 00:52 | NUR ---
CONTINUES TO SHOW NO NEURO DECLINE. DOES HAVE LUPUS AND HX OF L4/L5 BACK FUSION WITH RUPTURED DISKS ABOVE AND BELOW FUSION WITH CHRONIC ACUTE PAIN LT LOWER BACK AND LT SCIATIC AREA.
[2018-08-04] MEDS ORDERED: Venlafaxine HCl75 MG PO (18:17)
[2018-08-04] MEDS ORDERED: ASPI81CH PO (18:18)
--- NOTE | 2018-08-04 18:36 | NUR ---
DISCHARGE PT IS A/O X4, PLEASANT AFFECT. UP TO BR IND TODAY, SHE STATE @ X'S LIGHTHEADED HOWEVER HAS SAT @ EDGE OF BED UNTIL CLEAR BEFORE STANDING. STATE R SIDED WEAKNESS @ BASELINE. STATE FEELS READY TO GO HOME. DR ARTEAGA IN LATE AFTERNOON. STATE OK FOR D/C HOME, PLACE ORDER, NO NEW MEDS. D/C INSTRUCT PROVIDED W EMPHASIS ON F/U W DENTIST R/T RECENT TOOTH EXTRACTION & PAIN @ SITE.
== END 2018-08-04 19:40 | disposition home or self-care (01) | DRG 65 ==
LOC: ER 10:59 → ERHOLD 15:57 → MEDS 17:59
PROVIDERS: Emergency Medicine; Internal Medicine; Nurse Practitioner Acute Care; ADMIT Family Medicine
DX: I63.9 Cerebral infarction, unspecified (principal); K51.90 Ulcerative colitis, unspecified, without complications; G43.909 Migraine, unspecified, not intractable, without status migrainosus; E03.9 Hypothyroidism, unspecified; M19.90 Unspecified osteoarthritis, unspecified site; I73.00 Raynaud's syndrome without gangrene; E66.9 Obesity, unspecified; I48.0 Paroxysmal atrial fibrillation; I10 Essential (primary) hypertension; R47.89 Other speech disturbances; J45.20 Mild intermittent asthma, uncomplicated; M06.9 Rheumatoid arthritis, unspecified; F17.210 Nicotine dependence, cigarettes, uncomplicated; Z88.8 Allergy status to other drugs, medicaments and biological substances; I49.5 Sick sinus syndrome; E06.3 Autoimmune thyroiditis; Z68.36 Body mass index [BMI] 36.0-36.9, adult; R53.1 Weakness; M54.32 Sciatica, left side; R55 Syncope and collapse; Z79.82 Long term (current) use of aspirin
CPT/HCPCS: 36415; 70450; 71046; 80048; 80053; 80061; 81001; 85025; 85027; 85610; 85651; 92507; 92523; 93005; 93010; 93306; 93880; 97162; 97166; 97530; 99285-25

== ENCOUNTER 2018-10-12 17:33 | Observation (INO) | payer MEDICARE, OTHER ==
[~2018-10-12] VITALS: Ht 170.2 cm; Wt 102.3 kg
[~2018-10-12 17:33] MED LIST changes: +**INCOMPLETE MED REC; +ACYC400 PO; +ATOR40TA PO; +Amox Tr-K Clv1 EAC2 PO; +Cymbalta60 MG PO; +ELIQUIS5 MG PO; +HYDSUL200 PO; +LIDOCAINE1 EACH TOP; +OXYC5 PO; +PAROEX473 ML MM; +Venlafaxine HCl75 MG PO
[2018-10-12 18:32] LABS: BASOPHILS ABSOLUTE AUTO 0.07 K/mm3 (0.00-0.23); BASOPHILS PERCENT AUTO 1 % (0-2); EOSINOPHILS ABSOLUTE AUTO 0.26 K/mm3 (0.00-0.68); EOSINOPHILS PERCENT AUTO 3 % (0-6); Hematocrit 40.8 % (33.0-51.0); Hemoglobin 13.5 g/dL (11.5-16.0); IMMATURE GRAN ABSOLUTE AUTO 0.01 K/mm3 (0.00-0.10); IMMATURE GRAN PERCENT AUTO 0 % (0-1); LYMPHOCYTES ABSOLUTE AUTO 1.59 K/mm3 (0.84-5.20); LYMPHOCYTES PERCENT AUTO 21 % (21-46); MONOCYTES ABSOLUTE AUTO 0.59 K/mm3 (0.16-1.47); MONOCYTES PERCENT AUTO 8 % (4-13); Mean Corpuscular HGB 32.1 pg (26.0-34.0); Mean Corpuscular HGB Conc 33.1 g/dL (31.5-36.5); Mean Corpuscular Volume 97 fL (80-100); Mean Platelet Volume 10.1 fL (9.1-12.4); NEUTROPHILS ABSOLUTE AUTO 5.04 K/mm3 (1.96-9.15); NEUTROPHILS PERCENT AUTO 67 % (41-73); Platelet Count 275 K/mm3 (150-400); RDW Coefficient Variation 12.8 % (11.7-14.2); RDW Standard Deviation 45.1 fL (35.1-46.3); Red Blood Cell Count 4.21 M/mm3 (3.80-5.20); White Blood Cell Count 7.56 K/mm3 (4.00-11.30)
[2018-10-12 18:53] LABS: Alanine Aminotransfer (ALT/SGP 30 U/L (12-78); Albumin, Blood 3.6 g/dL (3.4-5.0); Albumin/Globulin Ratio 0.9 (0.8-1.8); Alk Phos 53 U/L (50-136); Anion Gap 5 mmol/L (6-16); Aspartate Aminotrans (AST/SGOT 40 U/L (12-37); Bilirubin, Total 0.3 mg/dL (0.1-1.0); Blood Urea Nitrogen 20 mg/dL (8-24); Bun/Creatinine Ratio 18.9 (12.0-20.0); CO2, Blood 27 mmol/L (21-32); Calcium, Blood 9.1 mg/dL (8.5-10.1); Chloride, Blood 104 mmol/L (98-108); Creatinine, Blood 1.06 mg/dL (0.40-1.00); Globulin, Blood 3.9 g/dL (2.2-4.0); Glomerular Filtration Rate 55 (60-); Glucose, Blood 83 mg/dL (70-99); Potassium, Blood 5.3 mmol/L (3.5-5.5); Sodium, Blood 136 mmol/L (136-145); Total Protein, Blood 7.5 g/dL (6.4-8.2); Troponin I <0.015 ng/mL (0.000-0.040)
[2018-10-12] MEDS ORDERED: TRAZ150T57 (21:02)
--- NOTE | 2018-10-13 07:48 | NUR ---
NOC SHIFT SUMMARY PT ADMITTED THIS NIGHT FOR CHEST PAIN. TROPS NORMAL. DENIES ANY DISCOMFORT OR CHEST PAIN SINCE ADMIT. VSS. PER TELE MONITOR PT IS 100% PACED. DUAL PACED. RATE 77. PLEASANT AND COOPERATIVE WITH CARE. APPEARS IN NO ACUTE DISTRESS. REPORT TO WICHO KC.
[2018-10-13] MEDS ORDERED: BUPROPION HCL200 MG PO (10:37)
--- NOTE | 2018-10-13 17:45 | NUR ---
SHIFT SUMMARY PT AXO, PLEASANT AND COOPERATIVE WITH CARE. PT WAS TO HAVE STRESS TEST TODAY. MATHEWMERT JENN CALLED NURSE TO NOTIFY HER THAT PT COULD EAT BREAKFAST AND THEN TO HOLD LUNCH TRAY UNTIL PT WAS INJECTED FOR STRESS TEST. NURSE NOTIFIED ELEMENTARY SCHOOL REGISTRAR AND ELEMENTARY SCHOOL REGISTRAR AGREED TO HOLD GIVE BREAKFAST TRY AND TO HOLD LUNCH TRAY. THEN AT LUNCH TIME, ELEMENTARY SCHOOL REGISTRAR DELIVERED TRY CONTRARY TO AGREEMENT. PT BEGAN EATING AND WAS DOING SO WHEN KATE GUPTA CAME TO BEGIN STRESS TEST. ELEMENTARY SCHOOL REGISTRAR REPORTS THAT SHE FORGOT. NURSE NOTIFIED DR GARCIA AND CHARGE NURSE. PT HAS BEEN SLEEPING THROUGHOUT THE DAY. PT REPORTS LOWER BACK PAIN, LIDOCAINE PATCH IN PLACE AT THIS TIME. PT DENIES SOB AND NV. PT DENIES CHEST PAIN THIS SHIFT, NO ACUTE CHANGES. PT ON TELE, 100% DUAL PACED. BED IN LOW POSITION, CALL LIGHT WITHIN REACH
--- NOTE | 2018-10-13 19:36 | NUR ---
AT 1845 PT MENTIONED TO NURSE THAT SHE WAS HAVING A MINOR CHEST PAIN. PT ASKED FOR MORPHINE. NURSE ASKED ANOTHER TO MEASURE VITAL SIGNS. AND NOTIFIED CHARGE NURSE WHO CALLED DR GARCIA. NEW ORDERS INTIATED. REPORT GIVEN TO ATTORNEY RECRUITER NURSE WHO ASSUMED CARE AT THAT TIME
--- NOTE | 2018-10-14 04:48 | NUR ---
Rn summary: Patient is alert and oriented. She is up independantly in room to BR. Pt did have episode of chest pain that started at the end of day shift, EKG done, remains the same as previous. Pain is a 4-5/10. Pt was medicated with nitro 4mg SL with relief down to a 2/10 then gone. Pt BP did drop systolic in mid 90's. Ptt medicated with phenergan for nausia with good relief. Patient has rested during the night with no further chestpain. Pt is NPO after 4 for Stress test today. Telemetry shows dual paced rhythm rate 78. Call light in reach.
--- NOTE | 2018-10-14 07:30 | NUR ---
NUC MED STATE PT MAY HAVE BF THEN NPO X WATER FOR STRESS TEST @ 1230. INSTRUCTIONAL SERVICES LIBRARIAN ALERTED. PT INFORMED. SHE STATE NO C/P @ THIS TIME. TELE MX REPORT NO EVENTS ON TELE.
--- NOTE | 2018-10-14 15:59 | NUR ---
SUMMARY PT IS A/O X4, INDEPENDANT IN ROOM. PLEASANT/COOPERATIVE AFFECT. SHE HAS STATED NO CHEST PAIN, NO SOB, NO NAUSEA TODAY. SCHEDULED FOR 1ST PORTION OF CARDIAC STRESS TEST TODAY, STARTED @ 1200 COMPLETED @ 1400 THIS AFTERNOON. SHE HAD LUNCH THEN NAPPING THIS AFTERNOON. NO LONG ACTING NITRATES, NO CAFFEINE AFTER 8PM TONITE. SHE MAY HAVE BF IN AM THEN NPO X WATER. 2ND PORTION STRESS TEST TO BEGIN APPROX 1200 TOMORROW. VSS.
--- NOTE | 2018-10-15 05:43 | NUR ---
SHIFT SUMMARY PT SLEPT FAIR, STATES SHE WAS AWAKE A LOT. NO ACUTE EVENTS NOTED DURING THE NIGHT. MEDICATED X1 FOR PAIN AT BEDTIME. WILL CONTINUE TO MONITOR.
[2018-10-15 12:26] LABS: BASOPHILS ABSOLUTE AUTO 0.07 K/mm3 (0.00-0.23); BASOPHILS PERCENT AUTO 1 % (0-2); EOSINOPHILS ABSOLUTE AUTO 0.28 K/mm3 (0.00-0.68); EOSINOPHILS PERCENT AUTO 4 % (0-6); Hematocrit 38.7 % (33.0-51.0); Hemoglobin 13.1 g/dL (11.5-16.0); IMMATURE GRAN ABSOLUTE AUTO 0.02 K/mm3 (0.00-0.10); IMMATURE GRAN PERCENT AUTO 0 % (0-1); LYMPHOCYTES ABSOLUTE AUTO 0.93 K/mm3 (0.84-5.20); LYMPHOCYTES PERCENT AUTO 13 % (21-46); MONOCYTES ABSOLUTE AUTO 0.55 K/mm3 (0.16-1.47); MONOCYTES PERCENT AUTO 8 % (4-13); Mean Corpuscular HGB 32.1 pg (26.0-34.0); Mean Corpuscular HGB Conc 33.9 g/dL (31.5-36.5); Mean Corpuscular Volume 95 fL (80-100); Mean Platelet Volume 9.7 fL (9.1-12.4); NEUTROPHILS ABSOLUTE AUTO 5.41 K/mm3 (1.96-9.15); NEUTROPHILS PERCENT AUTO 74 % (41-73); Platelet Count 256 K/mm3 (150-400); RDW Coefficient Variation 12.4 % (11.7-14.2); RDW Standard Deviation 42.9 fL (35.1-46.3); Red Blood Cell Count 4.08 M/mm3 (3.80-5.20); White Blood Cell Count 7.26 K/mm3 (4.00-11.30)
[2018-10-15 12:41] LABS: International Normalized Ratio 1.02; Prothrombin Time Results 10.8 Sec (9.7-11.5)
[2018-10-15 13:12] LABS: Albumin, Blood 3.4 g/dL (3.4-5.0); Anion Gap 6 mmol/L (6-16); Blood Urea Nitrogen 23 mg/dL (8-24); Bun/Creatinine Ratio 23.5 (12.0-20.0); CO2, Blood 26 mmol/L (21-32); Calcium, Blood 8.6 mg/dL (8.5-10.1); Chloride, Blood 97 mmol/L (98-108); Creatinine, Blood 0.98 mg/dL (0.40-1.00); Glomerular Filtration Rate >60 (60-); Glucose, Blood 89 mg/dL (70-99); Phosphorus, Blood 3.5 mg/dL (2.5-4.9); Potassium, Blood 4.6 mmol/L (3.5-5.5); Sodium, Blood 129 mmol/L (136-145)
[2018-10-15] MEDS ORDERED: Nitroglycerin0.4 MG (17:04)
--- NOTE | 2018-10-15 17:37 | NUR ---
PT. DISCHARGED HOME WITH FRIEND.
== END 2018-10-15 17:38 | disposition home or self-care (01) ==
LOC: ER 17:33 → MEDS 17:34 → EDPENDDIS 10-13 13:58 → ENPENDDIS 10-13 13:58 → MEDS 10-15 17:38
PROVIDERS: Emergency Medicine; Family Medicine; ADMIT Hospitalist
DX: R07.9 Chest pain, unspecified (principal); I25.10 Atherosclerotic heart disease of native coronary artery without angina pectoris; I48.0 Paroxysmal atrial fibrillation; J45.20 Mild intermittent asthma, uncomplicated; I49.5 Sick sinus syndrome; E87.1 Hypo-osmolality and hyponatremia; E03.9 Hypothyroidism, unspecified; E78.5 Hyperlipidemia, unspecified; F32.9 Major depressive disorder, single episode, unspecified; I08.1 Rheumatic disorders of both mitral and tricuspid valves; Z86.73 Personal history of transient ischemic attack (TIA), and cerebral infarction without residual deficits; Z87.891 Personal history of nicotine dependence; Z79.899 Other long term (current) drug therapy; Z79.02 Long term (current) use of antithrombotics/antiplatelets; Z95.1 Presence of aortocoronary bypass graft
CPT/HCPCS: 36415; 71046; 78452; 80053; 80069; 84484; 85025; 85610; 93005; 93010; 93017; 96374; 99285-25; A9500; G0378; J2405; J2785; J3010; Q0163

== ENCOUNTER 2018-11-25 18:35 | Inpatient (IN) | payer MEDICARE, OTHER ==
[~2018-11-25] VITALS: Ht 170.2 cm; Wt 104.8 kg
[~2018-11-25 18:35] MED LIST changes: +BUPROPION HCL200 MG PO; -Cymbalta60 MG PO; +Lopressor 25 mg25 MG PO; +Nitroglycerin0.4 MG SL
[2018-11-25 20:55] LABS: BASOPHILS ABSOLUTE AUTO 0.07 K/mm3 (0.00-0.23); BASOPHILS PERCENT AUTO 1 % (0-2); EOSINOPHILS ABSOLUTE AUTO 0.16 K/mm3 (0.00-0.68); EOSINOPHILS PERCENT AUTO 2 % (0-6); Hemoglobin 13.8 g/dL (11.5-16.0); IMMATURE GRAN ABSOLUTE AUTO 0.03 K/mm3 (0.00-0.10); IMMATURE GRAN PERCENT AUTO 0 % (0-1); LYMPHOCYTES PERCENT AUTO 10 % (21-46); MONOCYTES ABSOLUTE AUTO 0.46 K/mm3 (0.16-1.47); MONOCYTES PERCENT AUTO 5 % (4-13); Mean Corpuscular HGB Conc 32.9 g/dL (31.5-36.5); Mean Corpuscular Volume 97 fL (80-100); Mean Platelet Volume 9.9 fL (9.1-12.4); NEUTROPHILS ABSOLUTE AUTO 8.52 K/mm3 (1.96-9.15); NEUTROPHILS PERCENT AUTO 83 % (41-73); Platelet Count 213 K/mm3 (150-400); RDW Coefficient Variation 12.7 % (11.7-14.2); RDW Standard Deviation 45.8 fL (35.1-46.3); Red Blood Cell Count 4.31 M/mm3 (3.80-5.20); White Blood Cell Count 10.24 K/mm3 (4.00-11.30)
[2018-11-25 21:13] LABS: Alanine Aminotransfer (ALT/SGP 26 U/L (12-78); Albumin, Blood 3.7 g/dL (3.4-5.0); Alk Phos 60 U/L (50-136); Anion Gap 7 mmol/L (6-16); Aspartate Aminotrans (AST/SGOT 19 U/L (12-37); Bilirubin, Total 0.3 mg/dL (0.1-1.0); Blood Urea Nitrogen 20 mg/dL (8-24); Bun/Creatinine Ratio 20.8 (12.0-20.0); CO2, Blood 27 mmol/L (21-32); Calcium, Blood 9.1 mg/dL (8.5-10.1); Chloride, Blood 106 mmol/L (98-108); Creatinine, Blood 0.96 mg/dL (0.40-1.00); Globulin, Blood 3.7 g/dL (2.2-4.0); Glomerular Filtration Rate >60 (60-); Glucose, Blood 86 mg/dL (70-99); Potassium, Blood 4.5 mmol/L (3.5-5.5); Sodium, Blood 140 mmol/L (136-145); Total Protein, Blood 7.4 g/dL (6.4-8.2)
[2018-11-25] MEDS ORDERED: Bupropion HCl200 MG PO (21:37)
[2018-11-25] MEDS ORDERED: Tizanidine HCl2 MG PO (21:37)
--- NOTE | 2018-11-26 06:36 | NUR ---
SHIFT SUMMARY PT WAS A NEW ADMIT DURING THE NIGHT, ADMITTED TO THE FLOOR AT 2333. SHE WAS ADMITTED FOR A CVA. THE PT DID HAVE SOME OCCASIONAL MIXED UP WORDS DURING THE NIGHT, BUT NO SLURRED SPEECH. SHE ALSO REPORTED SOME FACIAL TINGLING AND R-SIDED WEAKNESS, THOUGH PER THE PT THAT WAS FROM A PREV CVA. PT OTHERWISE NEUROLOGICALLY INTACT. PT WAS MEDICATED ONCE THIS AM WITH PRN OXYCODONE FOR BACK PAIN. NO COMPLAINTS OF NAUSEA OR SOB. PT SLEPT WELL THROUGH THE NIGHT. VITALS REMAINED STABLE. NO OTHER ACUTE CHANGES IN PT CONDITION NOTED. WILL CONTINUE TO MONITOR AND TREAT PER EMAR UNTIL HAND OFF TO DAY SHIFT.
[2018-11-26 09:29] LABS: CHOL/HDL RATIO 3.2; Cholesterol 153 mg/dL (50-200); HDL Cholesterol 48 mg/dL (>39); LDL/HDL RATIO 1.7; Low Density Lipoprotein Chol 82 mg/dL (0-110); Triglycerides 116 mg/dL (30-160); Very Low Density Lipoprot Chol 23 mg/dL (6-32)
--- NOTE | 2018-11-26 09:33 | NUR ---
Echocardiogram completed.
--- NOTE | 2018-11-26 13:02 | NUR ---
Pal Spiritual Care inital visit: Pippa was alone in room and sleeping. She awakens easily to voice, but could not stay awake for conversation. She nodded 'yes' to prayer. She slept through prayer. I will remain available to pt and family.
--- NOTE | 2018-11-26 18:27 | NUR ---
PT. BACK IN BED AFTER BEING UP FOR DINNER AND THEN USING BSC. REQUESTED PAIN MEDS AND MUSCLE RELAXANT. PT. UNEVENTFUL HAS SLEPT A GREAT PART OF THE DAY. UNABLE TO HAVE AN MRI R/T PACEMAKER. PT/OT/AND ST ALL IN TO SEE PATIENT TODAY AND PT VERY COOPERATIVE. NO NOTEABLE CHANGES TODAY. PAIN MEDS AND MUSCLE RELAXANTS GIVEN FOR LOWER BACK PAIN.
[2018-11-27 05:45] LABS: Albumin, Blood 3.3 g/dL (3.4-5.0); Anion Gap 5 mmol/L (6-16); Blood Urea Nitrogen 22 mg/dL (8-24); Bun/Creatinine Ratio 18.8 (12.0-20.0); CO2, Blood 27 mmol/L (21-32); Calcium, Blood 8.6 mg/dL (8.5-10.1); Chloride, Blood 107 mmol/L (98-108); Creatinine, Blood 1.17 mg/dL (0.40-1.00); Glomerular Filtration Rate 49 (60-); Glucose, Blood 84 mg/dL (70-99); Potassium, Blood 4.4 mmol/L (3.5-5.5); Sodium, Blood 139 mmol/L (136-145)
--- NOTE | 2018-11-27 06:11 | NUR ---
SHIFT SUMMARY: 68 Y/O OBESE FEMALE RESTED COMFORTABLY ALL SHIFT. PT CONTINUES TO HAVE RIGHT SIDED WEAKNESS WITH ONE STANDBY ASSIST REQUIRED TO UTILIZE BSC. PTS BALANCE AND EQUILIBRUM POOR AT TIMES. PT DENIES PAIN, NAUSEA OR TROUBLING SWALLOWING FLUIDS. PT HAS GOOD GAG REFLEX AND SWALLOWING PILLS AND WATER WITHOUT ISSUE. PT ALERT AND ORIENTED X 4; ABLE TO RECALL RECENT AND PAST EVENTS. PTS BED LOW POSITION, CALL LIGHT AT SIDE. TELEMETRY RELFECTS PACED RHYTHM (PT HAS PACEMAKER).
--- NOTE | 2018-11-27 16:04 | NUR ---
SHIFT SUMMARY 68 YR OLD FEMALE ADMITTED FOR CVA. FULL CODE. A&O X4. FWW TO BATHROOM, STANDBY ASSIST. PACEMAKER IN PLACE. TELEMETRY IS MONITORING VIA PCU MONEY COUNTER. ROOM AIR. LIVES ALONE. EXPRESSIVE AND VERBAL APHASIA HAS IMPROVED TODAY, PT STATES. CARDIAC DIET. MEDS WHOLE. WEAKNESS & RT. SIDED DEFICITS. PLAN IS FOR DC TO REHAB FOR PT/OT. HX: MULTIPLE CVA'S, AFIB, CAD W/STENTS, HYPOTHYROIDISM, DEPRESSION.
--- NOTE | 2018-11-28 04:26 | NUR ---
SHIFT SUMMARY: 68 Y/O FEMALE RESTED COMFORTABLY ALL SHIFT. PT CONTINUES TO HAVE RIGHT SIDED WEAKNESS NOTED WITH RIGHT HAND RELATIONSHIP ASSOCIATE & RIGHT FOOT PUSH/PULL WEAKER THAN LEFT. PT ABLE TO AMBULATE VIA WALKER TO BATHROOM X 1 STANDBY ASSIST. PTS GAIT SLOW AND STEADY. PT ABLE TO SWALLOW ALL MEDICATIONS, DENIES PAIN OR NAUSEA. PTS THOUGHT PROCESS IS ORGANIZED. PT HOPING FOR POSSIBLE DISCHARGE TODAY TO REHABILIATION FACILITY. PTS BED LOW POSITION, CALL LIGHT AT SIDE.
[2018-11-28 08:38] LABS: Hematocrit 41.6 % (33.0-51.0); Hemoglobin 14.1 g/dL (11.5-16.0)
[2018-11-28 09:02] LABS: Albumin, Blood 3.6 g/dL (3.4-5.0); Anion Gap 4 mmol/L (6-16); Blood Urea Nitrogen 22 mg/dL (8-24); CO2, Blood 28 mmol/L (21-32); Calcium, Blood 9.1 mg/dL (8.5-10.1); Chloride, Blood 105 mmol/L (98-108); Creatinine, Blood 1.05 mg/dL (0.40-1.00); Glomerular Filtration Rate 56 (60-); Glucose, Blood 93 mg/dL (70-99); Phosphorus, Blood 4.1 mg/dL (2.5-4.9); Potassium, Blood 4.4 mmol/L (3.5-5.5); Sodium, Blood 137 mmol/L (136-145)
--- NOTE | 2018-11-28 16:51 | NUR ---
Initial palliative care consult: Ector is a 68 year old with a history of CVA x 3, multiple TIAs, esophageal spasms, migraines, sick sinus syndrome s/p pacemaker placement, hypothyroidism, asthma, GERD, CAD, raynaud's, gastroparesis, ulcerative colitis, rheumatoid arthritis and lupus. She was admitted to the hospital for a CVA. She is alert, oriented and appears to be improving. She is having less difficulty finding words then she was on admission. She c/o dizziness. She states she has some R-sided weakness as a residual from "The big stroke." She is highly motivated to do therapy and improve. She lives alone with her cat. She has a neighbor who helps out when she can. She has chronic back pain which she reports has been very dibilitating to her over the past year. She saw a specialist in [place] recently who gave her some hope for improving her back pain. She reports in the past she was suicial from the pain, however she reports now that she no longer feels that way as she has "a glimmer of hope of getting my life back." She sits on the [employer] councel in [place] and prior to her chronic back pain becoming a problem she was an active volunteer. She reports she had to give up the volunteering for awhile but hopes to be able to go back to it. She reports zanaflex and roxicodone are the medications that she uses for her back pain. She is looking forward to starting therapy in the pool for her back pain. 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 She misses working as a fire support specialist and enjoyed recalling stories from that career. She states she doesn't have time to be sick and is looking forward to being discharged. She is agreeable to going to SNF short term, but would prefer going home. She did admit that she may not have the support at home that she needs, she states "My cat can't deli cook!" She was a 4-wheeled walker at home with a seat that she uses. She reports she gets dizzy and sometimes passes out which she attributes to tachycardia at times. She reports this has been an ongoing problem. She states she has fallen and hit her head more than once. Discussed wearing a helmet which she states that she doesn't do. She currently denies any needs and has no questions at this time. Again she is highly motivated to rehab from this CVA. She is a full code at this time. PC to continue to follow for symptom management and care planning.
--- NOTE | 2018-11-28 17:30 | NUR ---
SHIFT SUMMARY PATIENT IS PLEASANT, NO ACUTE CONCERNS AT THIS TIME.
--- NOTE | 2018-11-29 05:35 | NUR ---
SHIFT SUMMARY: 68 Y/O FEMALE RESTED COMFORTABLY ALL SHIFT. PT AMBULATED 200 FEET LAST NIGHT VIA WALKER IN HALLWAY WITH NURSING STAFF AT SIDE, GAIT SLOW AND STEADY. PT HAS ONLY VERY SLIGHT RIGHT SIDED NEUROLOGICAL DEFICITS (GROSS AND FINE MOTOR MOVEMENTS INTACT, ALERT AND ORIENTED X 4, DENIES PAIN OR NAUSEA. PT RECEPTIVE TO HAVING HOME HEALTH CARE COME INTO HOME UPON DISCHARGE FOR PT/OT CONSULTS. PT ALSO SAT IN BEDSIDE CHAIR LAST NIGHT FOR 45 MINUTES AND WAS ENCOURAGED BY THIS NURSE TO SET UP IN CHAIR FOR ALL MEALS TODAY WITH ACKNOWLEDGEMENT NOTED. PTS BED LOW POSITION, CALL LIGHT AT SIDE.
--- NOTE | 2018-11-29 18:21 | NUR ---
shift summary patient very active today. no acute concerns. she was able to walk the whole loop with physical therapy hands off. no acute concerns of any kind. to continue to work with physical therapy throughout the weekend for possible discharge home on saturday.
--- NOTE | 2018-11-30 04:07 | NUR ---
SHIFT SUMMARY: 68 Y/O FEMALE RESTED COMFORTABLY IN BED ALL SHIFT. PT HAS NO NEUROLOGICAL DEFICITS NOTED. PT ALERT AND ORIENTED X 4, DENIES PAIN OR NAUSEA. PTS TENTATIVELY LOOKING TO BE DISCHARGED HOME ON SATURDAY, DECEMBER 01 WITH HOME CARE FOR PT/OT SERVICES. PTS BED LOW POSITION, CALL LIGHT AT SIDE.
--- NOTE | 2018-11-30 17:58 | NUR ---
SHIFT SUMMARY PATIENT IS VERY PLEASANT. MOVING TOWARDS DISCHARGE TOMORROW. SHE IS ALERT AND ORIENTED, INDEPENDENT AND ALL DEFICITS ARE NOT NOTICABLE AT THIS TIME. SHE FEELS READY GO TO HOME TOMORROW ANDSTATES SHE NEEDS TO BE OUT BY NOON SHE HAS A 1300 APPOINTMENT THAT TOOK 4 MONTHS TO GET.
--- NOTE | 2018-12-01 04:37 | NUR ---
SHIFT SUMMARY- NO ACUTE CHANGES OVERNIGHT. PT IS COOPERATIVE WITH CARE AND INDEPENDENT. SLEPT WELL T/O THE NIGHT, IS ANTICIPATING DISCHARGE IN THE AM. NOTED NO DEFICITS AT THIS TIME. CALL LIGHT IS WITHIN REACH AND SIDE RAILS UP X2.
--- NOTE | 2018-12-01 12:10 | NUR ---
REVIEW D'C INSTRUCTIONS. AWARE HAS F/U APPT NEXT SATURDAY. REVIEW MEDS. AWARE CAN RETURN TO E.R. IF ANY PROBLEMS. ANSWER ALL QUESTIONS. IN W/C TO RADIOLOGY TO PRODUCTION UTILITY WORKER CD OF CT HEAD/NECK. TO POV W/ADULT FEMALE
== END 2018-12-01 12:11 | disposition home health service (06) | DRG 65 ==
LOC: ER 18:35 → MEDS 18:36 → ENPENDDIS 12-01 09:54 → MEDS 12-01 12:11
PROVIDERS: Emergency Medicine; Internal Medicine; ADMIT Hospitalist
DX: I63.9 Cerebral infarction, unspecified (principal); I69.351 Hemiplegia and hemiparesis following cerebral infarction affecting right dominant side; R48.2 Apraxia; R47.01 Aphasia; I48.0 Paroxysmal atrial fibrillation; F32.9 Major depressive disorder, single episode, unspecified; G89.29 Other chronic pain; M54.5 Low back pain; E03.9 Hypothyroidism, unspecified; E78.5 Hyperlipidemia, unspecified; I25.10 Atherosclerotic heart disease of native coronary artery without angina pectoris; E66.9 Obesity, unspecified; I08.1 Rheumatic disorders of both mitral and tricuspid valves; R40.2362 Coma scale, best motor response, obeys commands, at arrival to emergency department; M06.9 Rheumatoid arthritis, unspecified; I73.00 Raynaud's syndrome without gangrene; R40.2142 Coma scale, eyes open, spontaneous, at arrival to emergency department; I10 Essential (primary) hypertension; R40.2252 Coma scale, best verbal response, oriented, at arrival to emergency department; Z88.1 Allergy status to other antibiotic agents; Z88.5 Allergy status to narcotic agent; Z95.5 Presence of coronary angioplasty implant and graft; Z87.891 Personal history of nicotine dependence; Z95.0 Presence of cardiac pacemaker; Z88.2 Allergy status to sulfonamides; Z88.8 Allergy status to other drugs, medicaments and biological substances; Z79.02 Long term (current) use of antithrombotics/antiplatelets; Z79.891 Long term (current) use of opiate analgesic; Z79.899 Other long term (current) drug therapy; Z68.36 Body mass index [BMI] 36.0-36.9, adult
CPT/HCPCS: 36415; 70450; 70496; 70498; 80053; 80061; 80069; 85014; 85018; 85025; 92507; 92523; 93005; 93010; 93306; 96372-59; 96374-59; 96375-59; 97110; 97162; 97165; 97530; 97535; 99285-25; G0378; J1200; J1650; J1720; J7040; Q9967

== ENCOUNTER → 2019-02-23 | Outpatient (CLI) | payer MEDICARE, OTHER ==
[~2019-02-23] MED LIST changes: +Bupropion HCl200 MG PO; +Tizanidine HCl2 MG PO
[2019-02-23 17:55] LABS: U Amphetamine Screen Not Detected; U Barbituate Screen Not Detected; U Benzodiazapine Screen Not Detected; U Buprenorphine Screen Not Detected; U Cannabinoids Screen Not Detected; U Cocaine Screen Not Detected; U Methadone Screen Not Detected; U Methamphetamine Screen Not Detected; U Opiates Screen Not Detected; U Oxycodone Screen Not Detected; U Phencyclidine Screen Not Detected; U Propoxyphene Screen Not Detected
== END | disposition home or self-care (01) ==
LOC: OLS 16:46 → LAB 16:46 → LAB SHORT 16:46 → EDSTATUS 16:47
PROVIDERS: Internal Medicine
DX: Z51.81 Encounter for therapeutic drug level monitoring (principal); Z79.891 Long term (current) use of opiate analgesic

== ENCOUNTER 2019-03-09 11:34 | Day surgery (SDC) | payer MEDICARE, OTHER ==
[~2019-03-09] VITALS: Ht 170.2 cm; Wt 103.9 kg
== END 2019-03-09 13:20 | disposition home or self-care (01) ==
LOC: ORSCSDS 11:34
PROVIDERS: Anesthesiology
PROC: 3E0R33Z Introduction of Anti-inflammatory into Spinal Canal, Percutaneous Approach (ICD-10-PCS; principal; 2019-03-09 12:45)
DX: M96.1 Postlaminectomy syndrome, not elsewhere classified (principal); M54.16 Radiculopathy, lumbar region; I48.91 Unspecified atrial fibrillation; E03.9 Hypothyroidism, unspecified; F32.9 Major depressive disorder, single episode, unspecified; I10 Essential (primary) hypertension; E66.9 Obesity, unspecified; Z68.36 Body mass index [BMI] 36.0-36.9, adult; Z87.891 Personal history of nicotine dependence; J45.909 Unspecified asthma, uncomplicated; Z79.01 Long term (current) use of anticoagulants; Z79.899 Other long term (current) drug therapy
CPT/HCPCS: J1040

== ENCOUNTER 2019-04-16 15:01 | Day surgery (SDC) | payer MEDICARE, OTHER ==
[~2019-04-16] VITALS: Ht 170.2 cm; Wt 102.6 kg
[~2019-04-16 15:01] MED LIST changes: +ATOR80 PO; +BUDE10.22 INH; +BUPROPION HCL200 M1 PO; +Bentyl20 MG PO; +DULO60 PO; +METHOTREXA25 MG/1 M4 INJ; +METO50; +NYSTRITC; +PROAIR DIGIHAL90 MCG INH; +PROAIR RESPICL90 MCG; +Synthroid200 MCG PO; +TIZANIDINE HCL2 MG PO; +TRIA15CR3; +VITAMIN D31000 UNI3 PO
== END 2019-04-16 16:14 | disposition home or self-care (01) ==
LOC: ORSCSDS 15:01
PROVIDERS: Anesthesiology
PROC: 3E0R33Z Introduction of Anti-inflammatory into Spinal Canal, Percutaneous Approach (ICD-10-PCS; principal; 2019-04-16 16:00)
DX: M54.16 Radiculopathy, lumbar region (principal); M96.1 Postlaminectomy syndrome, not elsewhere classified; I48.91 Unspecified atrial fibrillation; Z95.0 Presence of cardiac pacemaker; E03.9 Hypothyroidism, unspecified; I10 Essential (primary) hypertension; J45.909 Unspecified asthma, uncomplicated; E66.9 Obesity, unspecified; Z68.35 Body mass index [BMI] 35.0-35.9, adult; Z79.01 Long term (current) use of anticoagulants; Z87.891 Personal history of nicotine dependence; Z79.899 Other long term (current) drug therapy
CPT/HCPCS: J1040

== ENCOUNTER 2019-06-26 14:31 | Emergency (ER) | payer MEDICARE, OTHER ==
[~2019-06-26] VITALS: Ht 170.2 cm; Wt 97.5 kg
[~2019-06-26 14:31] MED LIST changes: -METO50; -VITAMIN D31000 UNI3 PO; +VITAMIN D32000 UNI3 PO
[2019-06-26 15:22] LABS: BASOPHILS ABSOLUTE AUTO 0.08 K/mm3 (0.00-0.23); BASOPHILS PERCENT AUTO 1 % (0-2); EOSINOPHILS ABSOLUTE AUTO 0.32 K/mm3 (0.00-0.68); EOSINOPHILS PERCENT AUTO 5 % (0-6); Hematocrit 38.7 % (33.0-51.0); IMMATURE GRAN ABSOLUTE AUTO 0.02 K/mm3 (0.00-0.10); IMMATURE GRAN PERCENT AUTO 0 % (0-1); LYMPHOCYTES ABSOLUTE AUTO 1.49 K/mm3 (0.84-5.20); LYMPHOCYTES PERCENT AUTO 21 % (21-46); MONOCYTES ABSOLUTE AUTO 0.49 K/mm3 (0.16-1.47); MONOCYTES PERCENT AUTO 7 % (4-13); Mean Corpuscular HGB 32.4 pg (26.0-34.0); Mean Corpuscular HGB Conc 33.6 g/dL (31.5-36.5); Mean Corpuscular Volume 97 fL (80-100); Mean Platelet Volume 9.8 fL (9.1-12.4); NEUTROPHILS ABSOLUTE AUTO 4.73 K/mm3 (1.96-9.15); NEUTROPHILS PERCENT AUTO 66 % (41-73); Platelet Count 264 K/mm3 (150-400); RDW Coefficient Variation 12.3 % (11.7-14.2); RDW Standard Deviation 43.8 fL (35.1-46.3); Red Blood Cell Count 4.01 M/mm3 (3.80-5.20); White Blood Cell Count 7.13 K/mm3 (4.00-11.30)
[2019-06-26 15:52] LABS: Albumin, Blood 3.5 g/dL (3.4-5.0); Bilirubin, Total 0.3 mg/dL (0.1-1.0); Bun/Creatinine Ratio 16.5 (12.0-20.0); Calcium, Blood 8.7 mg/dL (8.5-10.1); Creatinine, Blood 1.03 mg/dL (0.40-1.00); Globulin, Blood 3.5 g/dL (2.2-4.0); Potassium, Blood 4.4 mmol/L (3.5-5.5)
[2019-06-26] MEDS ORDERED: MERIBIN5 MG PO (16:16)
[2019-06-26] MEDS ORDERED: ACYC200 PO (16:16)
[2019-06-26] MEDS ORDERED: CALCIUM CITRAT1 EAC7 PO (16:18)
[2019-06-26] MEDS ORDERED: UBID10 PO (16:19)
[2019-06-26] MEDS ORDERED: FISH OIL 1,001000 MG PO (16:22)
[2019-06-26] MEDS ORDERED: HYDSUL200 PO (16:23)
[2019-06-26] MEDS ORDERED: Hair, Skin & N1 EACH PO (16:25)
[2019-06-26] MEDS ORDERED: ASCO500 PO (16:26)
[2019-06-26 18:18] LABS: Source, Urine Clean Catch
[2019-06-26 18:23] LABS: Bilirubin, Urine Neg (Neg); Blood, Urine Neg (Neg); Glucose Qualitative, Urine Neg (Neg); Ketones, Urine Neg (Neg); Leukocyte Esterase, Urine Neg (Neg); Nitrite, Urine Neg (Neg); Protein, Urine Neg (Neg); Specific Gravity, Urine 1.015 (1.003-1.022); Urobilinogen, Urine NORM (Normal)
[2019-06-26 18:42] LABS: Appearance, Urine Clear (Clear); Color, Urine Yellow (P-Yellow)
== END 2019-06-26 19:19 | disposition home or self-care (01) ==
LOC: ER 14:31
PROVIDERS: Physician Assistant
DX: G45.4 Transient global amnesia (principal); G43.909 Migraine, unspecified, not intractable, without status migrainosus; I48.0 Paroxysmal atrial fibrillation; E03.9 Hypothyroidism, unspecified; E78.5 Hyperlipidemia, unspecified; I25.10 Atherosclerotic heart disease of native coronary artery without angina pectoris; Z91.030 Bee allergy status; Z88.2 Allergy status to sulfonamides; Z88.1 Allergy status to other antibiotic agents; Z91.09 Other allergy status, other than to drugs and biological substances; Z88.8 Allergy status to other drugs, medicaments and biological substances; Z88.5 Allergy status to narcotic agent; Z79.899 Other long term (current) drug therapy; Z79.01 Long term (current) use of anticoagulants; Z79.51 Long term (current) use of inhaled steroids; Z86.73 Personal history of transient ischemic attack (TIA), and cerebral infarction without residual deficits; Z87.891 Personal history of nicotine dependence
CPT/HCPCS: 36415; 70450; 80053; 81003; 85025; 96360; 99284-25; G0480; J7030

== ENCOUNTER 2019-08-26 20:17 | Emergency (ER) | payer MEDICARE, OTHER ==
[~2019-08-26] VITALS: Ht 170.2 cm; Wt 113.4 kg
[~2019-08-26 20:17] MED LIST changes: +ACYC200 PO; +ASCO500 PO; +CALCIUM CITRAT1 EAC7 PO; +FISH OIL 1,001000 MG PO; +Hair, Skin & N1 EACH PO; +MERIBIN5 MG PO; +UBID10 PO
[2019-08-26 20:54] LABS: BASOPHILS ABSOLUTE AUTO 0.07 K/mm3 (0.00-0.23); BASOPHILS PERCENT AUTO 1 % (0-2); EOSINOPHILS PERCENT AUTO 5 % (0-6); Hematocrit 41.3 % (33.0-51.0); Hemoglobin 13.7 g/dL (11.5-16.0); IMMATURE GRAN ABSOLUTE AUTO 0.02 K/mm3 (0.00-0.10); IMMATURE GRAN PERCENT AUTO 0 % (0-1); LYMPHOCYTES ABSOLUTE AUTO 1.62 K/mm3 (0.84-5.20); LYMPHOCYTES PERCENT AUTO 20 % (21-46); MONOCYTES ABSOLUTE AUTO 0.68 K/mm3 (0.16-1.47); MONOCYTES PERCENT AUTO 9 % (4-13); Mean Corpuscular HGB 32.3 pg (26.0-34.0); Mean Corpuscular HGB Conc 33.2 g/dL (31.5-36.5); Mean Corpuscular Volume 97 fL (80-100); Mean Platelet Volume 9.8 fL (9.1-12.4); NEUTROPHILS ABSOLUTE AUTO 5.15 K/mm3 (1.96-9.15); NEUTROPHILS PERCENT AUTO 65 % (41-73); Platelet Count 247 K/mm3 (150-400); RDW Coefficient Variation 12.5 % (11.7-14.2); RDW Standard Deviation 45.1 fL (35.1-46.3); Red Blood Cell Count 4.24 M/mm3 (3.80-5.20); White Blood Cell Count 7.94 K/mm3 (4.00-11.30)
[2019-08-26 21:11] LABS: Albumin, Blood 3.5 g/dL (3.4-5.0); Bilirubin, Total 0.2 mg/dL (0.1-1.0); Bun/Creatinine Ratio 19.5 (12.0-20.0); Calcium, Blood 8.7 mg/dL (8.5-10.1); Creatinine, Blood 1.23 mg/dL (0.40-1.00); Globulin, Blood 3.5 g/dL (2.2-4.0)
== END 2019-08-26 22:55 | disposition home or self-care (01) ==
LOC: ER 20:17
PROVIDERS: Emergency Medicine
DX: R55 Syncope and collapse (principal); S06.9X9A Unspecified intracranial injury with loss of consciousness of unspecified duration, initial encounter; I49.8 Other specified cardiac arrhythmias; G43.909 Migraine, unspecified, not intractable, without status migrainosus; I48.0 Paroxysmal atrial fibrillation; E03.9 Hypothyroidism, unspecified; E78.5 Hyperlipidemia, unspecified; I25.10 Atherosclerotic heart disease of native coronary artery without angina pectoris; Z87.891 Personal history of nicotine dependence; Z91.030 Bee allergy status; Z88.2 Allergy status to sulfonamides; Z88.1 Allergy status to other antibiotic agents; Z88.5 Allergy status to narcotic agent; Z88.8 Allergy status to other drugs, medicaments and biological substances; Z91.048 Other nonmedicinal substance allergy status; Z79.899 Other long term (current) drug therapy; Z79.51 Long term (current) use of inhaled steroids; Z79.01 Long term (current) use of anticoagulants; Z86.73 Personal history of transient ischemic attack (TIA), and cerebral infarction without residual deficits; Z95.5 Presence of coronary angioplasty implant and graft; W19.XXXA Unspecified fall, initial encounter
CPT/HCPCS: 70450; 72125; 80053; 85025; 93005; 93010; 99285-25; A9270-GY; J7030

== ENCOUNTER 2019-09-28 20:33 | Emergency (ER) | payer MEDICARE, OTHER ==
[~2019-09-28] VITALS: Ht 170.2 cm; Wt 99.8 kg
[2019-09-28 21:49] LABS: BASOPHILS ABSOLUTE AUTO 0.07 K/mm3 (0.00-0.23); BASOPHILS PERCENT AUTO 1 % (0-2); EOSINOPHILS ABSOLUTE AUTO 0.26 K/mm3 (0.00-0.68); EOSINOPHILS PERCENT AUTO 3 % (0-6); Hematocrit 42.3 % (33.0-51.0); IMMATURE GRAN ABSOLUTE AUTO 0.02 K/mm3 (0.00-0.10); IMMATURE GRAN PERCENT AUTO 0 % (0-1); LYMPHOCYTES ABSOLUTE AUTO 1.64 K/mm3 (0.84-5.20); LYMPHOCYTES PERCENT AUTO 21 % (21-46); MONOCYTES ABSOLUTE AUTO 0.64 K/mm3 (0.16-1.47); MONOCYTES PERCENT AUTO 8 % (4-13); Mean Corpuscular HGB 31.7 pg (26.0-34.0); Mean Corpuscular HGB Conc 33.1 g/dL (31.5-36.5); Mean Corpuscular Volume 96 fL (80-100); Mean Platelet Volume 9.6 fL (9.1-12.4); NEUTROPHILS ABSOLUTE AUTO 5.02 K/mm3 (1.96-9.15); NEUTROPHILS PERCENT AUTO 66 % (41-73); Platelet Count 246 K/mm3 (150-400); RDW Coefficient Variation 12.5 % (11.7-14.2); RDW Standard Deviation 44.8 fL (35.1-46.3); Red Blood Cell Count 4.41 M/mm3 (3.80-5.20); White Blood Cell Count 7.65 K/mm3 (4.00-11.30)
[2019-09-28 22:11] LABS: Alanine Aminotransfer (ALT/SGP 31 U/L (12-78); Albumin, Blood 3.8 g/dL (3.4-5.0); Albumin/Globulin Ratio 0.9 (0.8-1.8); Alk Phos 61 U/L (50-136); Anion Gap 6 mmol/L (6-16); Aspartate Aminotrans (AST/SGOT 37 U/L (12-37); Bilirubin, Total 0.4 mg/dL (0.1-1.0); Blood Urea Nitrogen 21 mg/dL (8-24); Bun/Creatinine Ratio 23.4 (12.0-20.0); CO2, Blood 27 mmol/L (21-32); Calcium, Blood 8.9 mg/dL (8.5-10.1); Chloride, Blood 101 mmol/L (98-108); Globulin, Blood 4.3 g/dL (2.2-4.0); Glomerular Filtration Rate >60 (60-); Glucose, Blood 73 mg/dL (70-99); Potassium, Blood 4.1 mmol/L (3.5-5.5); Sodium, Blood 134 mmol/L (136-145); Total Protein, Blood 8.1 g/dL (6.4-8.2); Troponin I <0.015 ng/mL (0.000-0.040)
[2019-09-28] MEDS ORDERED: Ativan0.5 MG PO (22:42)
== END 2019-09-28 23:02 | disposition home or self-care (01) ==
LOC: ER 20:33
PROVIDERS: Physician Assistant
DX: I49.3 Ventricular premature depolarization (principal); G43.909 Migraine, unspecified, not intractable, without status migrainosus; I48.91 Unspecified atrial fibrillation; E03.9 Hypothyroidism, unspecified; J45.909 Unspecified asthma, uncomplicated; Z91.030 Bee allergy status; Z88.2 Allergy status to sulfonamides; Z88.1 Allergy status to other antibiotic agents; Z91.09 Other allergy status, other than to drugs and biological substances; Z88.5 Allergy status to narcotic agent; Z88.8 Allergy status to other drugs, medicaments and biological substances; Z79.899 Other long term (current) drug therapy; Z79.51 Long term (current) use of inhaled steroids; Z79.01 Long term (current) use of anticoagulants; Z86.73 Personal history of transient ischemic attack (TIA), and cerebral infarction without residual deficits; Z87.891 Personal history of nicotine dependence
CPT/HCPCS: 36415; 71046; 80053; 83880; 84484; 85025; 93005; 93010; 99285-25; J2060

== ENCOUNTER 2019-12-23 19:09 | Emergency (ER) | payer MEDICARE, OTHER ==
[~2019-12-23] VITALS: Ht 170.2 cm; Wt 99.8 kg
[~2019-12-23 19:09] MED LIST changes: -ATOR80 PO; +Ativan0.5 MG PO; +LIDOCAINE1 EAC1 TOP; +VITAMIN D-32000 UNIT PO; -VITAMIN D32000 UNI3 PO
[2019-12-23 19:47] LABS: BASOPHILS ABSOLUTE AUTO 0.06 K/mm3 (0.00-0.23); BASOPHILS PERCENT AUTO 1 % (0-2); EOSINOPHILS ABSOLUTE AUTO 0.27 K/mm3 (0.00-0.68); EOSINOPHILS PERCENT AUTO 5 % (0-6); Hematocrit 41.9 % (33.0-51.0); Hemoglobin 13.9 g/dL (11.5-16.0); IMMATURE GRAN ABSOLUTE AUTO 0.01 K/mm3 (0.00-0.10); IMMATURE GRAN PERCENT AUTO 0 % (0-1); LYMPHOCYTES ABSOLUTE AUTO 1.44 K/mm3 (0.84-5.20); LYMPHOCYTES PERCENT AUTO 24 % (21-46); MONOCYTES ABSOLUTE AUTO 0.57 K/mm3 (0.16-1.47); MONOCYTES PERCENT AUTO 10 % (4-13); Mean Corpuscular HGB 31.2 pg (26.0-34.0); Mean Corpuscular HGB Conc 33.2 g/dL (31.5-36.5); Mean Corpuscular Volume 94 fL (80-100); NEUTROPHILS PERCENT AUTO 61 % (41-73); Platelet Count 230 K/mm3 (150-400); RDW Coefficient Variation 12.3 % (11.7-14.2); RDW Standard Deviation 42.8 fL (35.1-46.3); Red Blood Cell Count 4.45 M/mm3 (3.80-5.20); White Blood Cell Count 5.95 K/mm3 (4.00-11.30)
[2019-12-23 20:08] LABS: Alanine Aminotransfer (ALT/SGP 22 U/L (12-78); Albumin, Blood 3.5 g/dL (3.4-5.0); Alk Phos 51 U/L (50-136); Anion Gap 6 mmol/L (6-16); Aspartate Aminotrans (AST/SGOT 21 U/L (12-37); Bilirubin, Total 0.3 mg/dL (0.1-1.0); Blood Urea Nitrogen 21 mg/dL (8-24); Bun/Creatinine Ratio 21.1 (12.0-20.0); CO2, Blood 25 mmol/L (21-32); Chloride, Blood 102 mmol/L (98-108); Globulin, Blood 3.6 g/dL (2.2-4.0); Glomerular Filtration Rate 59 (60-); Glucose, Blood 77 mg/dL (70-99); Potassium, Blood 4.5 mmol/L (3.5-5.5); Sodium, Blood 133 mmol/L (136-145); Total Protein, Blood 7.1 g/dL (6.4-8.2); Troponin I <0.015 ng/mL (0.000-0.040)
== END 2019-12-23 22:00 | disposition home or self-care (01) ==
LOC: ER 19:09
PROVIDERS: Emergency Medicine
DX: R47.89 Other speech disturbances (principal); Z91.030 Bee allergy status; Z88.2 Allergy status to sulfonamides; Z88.1 Allergy status to other antibiotic agents; Z91.09 Other allergy status, other than to drugs and biological substances; Z88.5 Allergy status to narcotic agent; Z79.899 Other long term (current) drug therapy; I48.0 Paroxysmal atrial fibrillation; E03.9 Hypothyroidism, unspecified; Z86.73 Personal history of transient ischemic attack (TIA), and cerebral infarction without residual deficits; I25.10 Atherosclerotic heart disease of native coronary artery without angina pectoris; Z87.891 Personal history of nicotine dependence
CPT/HCPCS: 70450; 80053; 84484; 85025; 93005; 93010; 99285-25

== ENCOUNTER 2020-01-08 07:40 | Day surgery (SDC) | payer MEDICARE, OTHER ==
[~2020-01-08] VITALS: Ht 170.2 cm; Wt 104.0 kg
--- NOTE | 2020-01-08 10:44 | NUR ---
01/08/20 1044 Renetta Del Rosario 1030 PT WISHES TO STAY IN THE BED AT THIS TIME.
== END 2020-01-08 11:28 | disposition home or self-care (01) ==
LOC: ORSCSDS 07:40
PROVIDERS: Orthopaedic Surgery
PROC: 01S40ZZ Reposition Ulnar Nerve, Open Approach (ICD-10-PCS; principal; 2020-01-08 09:00)
PROC: 01N50ZZ Release Median Nerve, Open Approach (ICD-10-PCS; principal; 2020-01-08 09:00)
DX: G56.02 Carpal tunnel syndrome, left upper limb (principal); G56.22 Lesion of ulnar nerve, left upper limb; I10 Essential (primary) hypertension; I25.10 Atherosclerotic heart disease of native coronary artery without angina pectoris; Z95.0 Presence of cardiac pacemaker; I48.91 Unspecified atrial fibrillation; Z79.01 Long term (current) use of anticoagulants; E78.5 Hyperlipidemia, unspecified; J45.909 Unspecified asthma, uncomplicated; E66.9 Obesity, unspecified; Z68.35 Body mass index [BMI] 35.0-35.9, adult; Z79.899 Other long term (current) drug therapy; Z86.73 Personal history of transient ischemic attack (TIA), and cerebral infarction without residual deficits
CPT/HCPCS: J0171; J0690; J1100; J2370; J2405; J2704; J3010; J7120

== ENCOUNTER 2020-03-28 17:48 | Emergency (ER) | payer MEDICARE, OTHER ==
[~2020-03-28] VITALS: Ht 175.3 cm; Wt 113.4 kg
[2020-03-28 18:11] LABS: BASOPHILS ABSOLUTE AUTO 0.08 K/mm3 (0.00-0.23); BASOPHILS PERCENT AUTO 1 % (0-2); EOSINOPHILS ABSOLUTE AUTO 0.34 K/mm3 (0.00-0.68); EOSINOPHILS PERCENT AUTO 4 % (0-6); Hematocrit 44.3 % (33.0-51.0); Hemoglobin 14.4 g/dL (11.5-16.0); IMMATURE GRAN ABSOLUTE AUTO 0.03 K/mm3 (0.00-0.10); IMMATURE GRAN PERCENT AUTO 0 % (0-1); LYMPHOCYTES ABSOLUTE AUTO 1.74 K/mm3 (0.84-5.20); LYMPHOCYTES PERCENT AUTO 22 % (21-46); MONOCYTES ABSOLUTE AUTO 0.56 K/mm3 (0.16-1.47); MONOCYTES PERCENT AUTO 7 % (4-13); Mean Corpuscular HGB 31.8 pg (26.0-34.0); Mean Corpuscular HGB Conc 32.5 g/dL (31.5-36.5); Mean Corpuscular Volume 98 fL (80-100); Mean Platelet Volume 10.4 fL (9.1-12.4); NEUTROPHILS ABSOLUTE AUTO 5.36 K/mm3 (1.96-9.15); NEUTROPHILS PERCENT AUTO 66 % (41-73); Platelet Count 220 K/mm3 (150-400); RDW Coefficient Variation 14.8 % (11.7-14.2); RDW Standard Deviation 53.1 fL (35.1-46.3); Red Blood Cell Count 4.53 M/mm3 (3.80-5.20); White Blood Cell Count 8.11 K/mm3 (4.00-11.30)
[2020-03-28 18:38] LABS: Bun/Creatinine Ratio 16.3 (12.0-20.0); Creatinine, Blood 1.35 mg/dL (0.40-1.00); Potassium, Blood 4.6 mmol/L (3.5-5.5)
== END 2020-03-28 20:15 | disposition home or self-care (01) ==
LOC: ER 17:48
PROVIDERS: Emergency Medicine
DX: F43.0 Acute stress reaction (principal); E03.9 Hypothyroidism, unspecified; I48.0 Paroxysmal atrial fibrillation; E78.5 Hyperlipidemia, unspecified; Z86.73 Personal history of transient ischemic attack (TIA), and cerebral infarction without residual deficits; Z79.01 Long term (current) use of anticoagulants; Z87.891 Personal history of nicotine dependence; Z79.899 Other long term (current) drug therapy
CPT/HCPCS: 36415; 70450; 80048; 85025; 93005; 93010; 99285-25

== ENCOUNTER 2020-05-11 19:14 | Emergency (ER) | payer MEDICARE, OTHER ==
[~2020-05-11] VITALS: Ht 170.2 cm; Wt 99.8 kg
[2020-05-11 20:06] LABS: BASOPHILS ABSOLUTE AUTO 0.09 K/mm3 (0.00-0.23); BASOPHILS PERCENT AUTO 1 % (0-2); EOSINOPHILS ABSOLUTE AUTO 0.28 K/mm3 (0.00-0.68); EOSINOPHILS PERCENT AUTO 4 % (0-6); Hematocrit 41.1 % (33.0-51.0); IMMATURE GRAN ABSOLUTE AUTO 0.01 K/mm3 (0.00-0.10); IMMATURE GRAN PERCENT AUTO 0 % (0-1); LYMPHOCYTES ABSOLUTE AUTO 1.52 K/mm3 (0.84-5.20); LYMPHOCYTES PERCENT AUTO 21 % (21-46); MONOCYTES ABSOLUTE AUTO 0.58 K/mm3 (0.16-1.47); MONOCYTES PERCENT AUTO 8 % (4-13); Mean Corpuscular HGB 32.3 pg (26.0-34.0); Mean Corpuscular HGB Conc 34.1 g/dL (31.5-36.5); Mean Corpuscular Volume 95 fL (80-100); Mean Platelet Volume 10.2 fL (9.1-12.4); NEUTROPHILS ABSOLUTE AUTO 4.84 K/mm3 (1.96-9.15); NEUTROPHILS PERCENT AUTO 66 % (41-73); Platelet Count 252 K/mm3 (150-400); RDW Standard Deviation 45.4 fL (35.1-46.3); Red Blood Cell Count 4.33 M/mm3 (3.80-5.20); White Blood Cell Count 7.32 K/mm3 (4.00-11.30)
[2020-05-11 20:23] LABS: Alanine Aminotransfer (ALT/SGP 25 U/L (12-78); Albumin/Globulin Ratio 1.1 (0.8-1.8); Alk Phos 56 U/L (50-136); Anion Gap 5 mmol/L (6-16); Aspartate Aminotrans (AST/SGOT 23 U/L (12-37); Bilirubin, Total 0.3 mg/dL (0.1-1.0); Blood Urea Nitrogen 18 mg/dL (8-24); Bun/Creatinine Ratio 18.4 (12.0-20.0); CO2, Blood 28 mmol/L (21-32); Calcium, Blood 9.7 mg/dL (8.5-10.1); Chloride, Blood 103 mmol/L (98-108); Creatinine, Blood 0.98 mg/dL (0.40-1.00); Globulin, Blood 3.8 g/dL (2.2-4.0); Glomerular Filtration Rate >60 (60-); Glucose, Blood 85 mg/dL (70-99); Sodium, Blood 136 mmol/L (136-145); Total Protein, Blood 7.8 g/dL (6.4-8.2)
[2020-05-11 21:07] LABS: Source, Urine Clean Catch
[2020-05-11 21:20] LABS: Bilirubin, Urine Neg (Neg); Blood, Urine Neg (Neg); Glucose Qualitative, Urine Neg (Neg); Ketones, Urine Neg (Neg); Leukocyte Esterase, Urine Neg (Neg); Nitrite, Urine Neg (Neg); Protein, Urine Neg (Neg); Urobilinogen, Urine NORM (Normal)
[2020-05-11 21:21] LABS: Appearance, Urine Clear (Clear); Color, Urine Yellow (P-Yellow)
[2020-05-11] MEDS ORDERED: MIRT15 PO (21:44)
== END 2020-05-12 00:06 | disposition home or self-care (01) ==
LOC: ER 19:14
PROVIDERS: Physician Assistant
DX: R42 Dizziness and giddiness (principal); I48.91 Unspecified atrial fibrillation; E03.9 Hypothyroidism, unspecified; E78.00 Pure hypercholesterolemia, unspecified; I10 Essential (primary) hypertension; F17.210 Nicotine dependence, cigarettes, uncomplicated; Z79.01 Long term (current) use of anticoagulants; Z79.899 Other long term (current) drug therapy; Z86.73 Personal history of transient ischemic attack (TIA), and cerebral infarction without residual deficits; Z88.2 Allergy status to sulfonamides; Z91.030 Bee allergy status; Z88.1 Allergy status to other antibiotic agents; Z91.041 Radiographic dye allergy status; Z95.0 Presence of cardiac pacemaker; Z95.5 Presence of coronary angioplasty implant and graft
CPT/HCPCS: 36415; 70450; 80053; 81003; 84484; 85025; 93005; 93010; 99284-25

== ENCOUNTER 2020-09-05 18:41 | Emergency (ER) | payer MEDICARE, OTHER ==
[~2020-09-05] VITALS: Ht 170.2 cm; Wt 97.5 kg
[~2020-09-05 18:41] MED LIST changes: +MIRT15 PO
[2020-09-05] MEDS ORDERED: Prednisone10 MG PO (21:53)
[2020-09-05] MEDS ORDERED: CLIN300 PO (21:53)
== END 2020-09-05 22:04 | disposition home or self-care (01) ==
LOC: ER 18:41
DX: L03.031 Cellulitis of right toe (principal); I10 Essential (primary) hypertension; I48.91 Unspecified atrial fibrillation; E78.00 Pure hypercholesterolemia, unspecified; F17.210 Nicotine dependence, cigarettes, uncomplicated; Z88.8 Allergy status to other drugs, medicaments and biological substances; Z88.2 Allergy status to sulfonamides; Z79.899 Other long term (current) drug therapy
CPT/HCPCS: 73660; 84550; 99283-25; A9270; J7512

== ENCOUNTER 2020-12-18 17:33 | Emergency (ER) | payer MEDICARE, OTHER ==
[~2020-12-18] VITALS: Ht 170.2 cm; Wt 95.2 kg
[~2020-12-18 17:33] MED LIST changes: +Prednisone10 MG PO
[2020-12-18 21:21] LABS: BASOPHILS PERCENT AUTO 1 % (0-2); EOSINOPHILS ABSOLUTE AUTO 0.33 K/mm3 (0.00-0.68); EOSINOPHILS PERCENT AUTO 4 % (0-6); Hematocrit 40.1 % (33.0-51.0); Hemoglobin 13.6 g/dL (11.5-16.0); IMMATURE GRAN ABSOLUTE AUTO 0.02 K/mm3 (0.00-0.10); IMMATURE GRAN PERCENT AUTO 0 % (0-1); LYMPHOCYTES PERCENT AUTO 21 % (21-46); MONOCYTES ABSOLUTE AUTO 0.62 K/mm3 (0.16-1.47); MONOCYTES PERCENT AUTO 8 % (4-13); Mean Corpuscular HGB 31.4 pg (26.0-34.0); Mean Corpuscular HGB Conc 33.9 g/dL (31.5-36.5); Mean Corpuscular Volume 93 fL (80-100); Mean Platelet Volume 10.6 fL (9.1-12.4); NEUTROPHILS ABSOLUTE AUTO 4.83 K/mm3 (1.96-9.15); NEUTROPHILS PERCENT AUTO 64 % (41-73); Platelet Count 257 K/mm3 (150-400); RDW Coefficient Variation 12.5 % (11.7-14.2); RDW Standard Deviation 42.4 fL (35.1-46.3); Red Blood Cell Count 4.33 M/mm3 (3.80-5.20)
[2020-12-18 21:40] LABS: Anion Gap 7 mmol/L (6-16); Blood Urea Nitrogen 24 mg/dL (8-24); Bun/Creatinine Ratio 21.2 (12.0-20.0); CO2, Blood 24 mmol/L (21-32); Calcium, Blood 8.9 mg/dL (8.5-10.1); Chloride, Blood 104 mmol/L (98-108); Creatinine, Blood 1.13 mg/dL (0.40-1.00); Glomerular Filtration Rate 48 (60-); Glucose, Blood 75 mg/dL (70-99); Potassium, Blood 3.9 mmol/L (3.5-5.5); Sodium, Blood 135 mmol/L (136-145); Troponin I <0.015 ng/mL (0.000-0.040)
== END 2020-12-18 22:55 | disposition home or self-care (01) ==
LOC: ER 17:33
PROVIDERS: Student in an Organized Health Care Education/Training Program
DX: R42 Dizziness and giddiness (principal); I48.91 Unspecified atrial fibrillation; I10 Essential (primary) hypertension; E78.5 Hyperlipidemia, unspecified; F17.210 Nicotine dependence, cigarettes, uncomplicated; Z88.2 Allergy status to sulfonamides; Z88.8 Allergy status to other drugs, medicaments and biological substances
CPT/HCPCS: 71045; 80048; 84484; 85025; 93005; 93010; 99285-25; J7030

== ENCOUNTER → 2021-08-29 | Outpatient (CLI) | payer MEDICARE, OTHER ==
[2021-08-29 16:58] LABS: U Amphetamine Screen Not Detected; U Barbituate Screen Not Detected; U Benzodiazapine Screen Not Detected; U Buprenorphine Screen Not Detected; U Cannabinoids Screen Not Detected; U Cocaine Screen Not Detected; U Methadone Screen Not Detected; U Methamphetamine Screen Not Detected; U Opiates Screen Not Detected; U Oxycodone Screen Not Detected; U Phencyclidine Screen Not Detected; U Propoxyphene Screen Not Detected
== END | disposition home or self-care (01) ==
LOC: LAB SHORT 15:20
PROVIDERS: Internal Medicine
DX: Z51.81 Encounter for therapeutic drug level monitoring (principal); Z79.891 Long term (current) use of opiate analgesic

== ENCOUNTER 2021-09-21 12:18 | Emergency (ER) | payer MEDICARE, OTHER ==
[~2021-09-21] VITALS: Ht 170.2 cm; Wt 68.0 kg
[2021-09-21 13:10] LABS: BASOPHILS ABSOLUTE AUTO 0.07 K/mm3 (0.00-0.23); BASOPHILS PERCENT AUTO 1 % (0-2); EOSINOPHILS ABSOLUTE AUTO 0.24 K/mm3 (0.00-0.68); EOSINOPHILS PERCENT AUTO 4 % (0-6); Hematocrit 42.2 % (33.0-51.0); Hemoglobin 14.4 g/dL (11.5-16.0); IMMATURE GRAN ABSOLUTE AUTO 0.01 K/mm3 (0.00-0.10); IMMATURE GRAN PERCENT AUTO 0 % (0-1); LYMPHOCYTES ABSOLUTE AUTO 1.05 K/mm3 (0.84-5.20); LYMPHOCYTES PERCENT AUTO 16 % (21-46); MONOCYTES PERCENT AUTO 8 % (4-13); Mean Corpuscular HGB Conc 34.1 g/dL (31.5-36.5); Mean Corpuscular Volume 94 fL (80-100); Mean Platelet Volume 10.2 fL (9.1-12.4); NEUTROPHILS ABSOLUTE AUTO 4.59 K/mm3 (1.96-9.15); NEUTROPHILS PERCENT AUTO 71 % (41-73); Platelet Count 236 K/mm3 (150-400); RDW Coefficient Variation 13.5 % (11.7-14.2); RDW Standard Deviation 46.5 fL (35.1-46.3); White Blood Cell Count 6.46 K/mm3 (4.00-11.30)
[2021-09-21] MEDS ORDERED: OXYC5 PO (13:11)
[2021-09-21 13:27] LABS: Albumin, Blood 3.9 g/dL (3.4-5.0); Albumin/Globulin Ratio 1.1 (0.8-1.8); Bilirubin, Total 0.5 mg/dL (0.1-1.0); Bun/Creatinine Ratio 24.1 (12.0-20.0); Calcium, Blood 9.5 mg/dL (8.5-10.1); Creatinine, Blood 0.96 mg/dL (0.40-1.00); Globulin, Blood 3.5 g/dL (2.2-4.0); Potassium, Blood 4.6 mmol/L (3.5-5.5); Total Protein, Blood 7.4 g/dL (6.4-8.2)
[2021-09-21] MEDS ORDERED: Aspirin EC81 MG PO (15:02)
== END 2021-09-21 15:13 | disposition home or self-care (01) ==
LOC: ER 12:18
PROVIDERS: Emergency Medicine
DX: R47.01 Aphasia (principal); J45.909 Unspecified asthma, uncomplicated; E03.9 Hypothyroidism, unspecified; E78.5 Hyperlipidemia, unspecified; F17.210 Nicotine dependence, cigarettes, uncomplicated; Z95.0 Presence of cardiac pacemaker; Z79.01 Long term (current) use of anticoagulants; Z88.5 Allergy status to narcotic agent; Z88.2 Allergy status to sulfonamides; Z88.8 Allergy status to other drugs, medicaments and biological substances; Z88.1 Allergy status to other antibiotic agents; Z91.030 Bee allergy status; Z91.038 Other insect allergy status; Z86.73 Personal history of transient ischemic attack (TIA), and cerebral infarction without residual deficits
CPT/HCPCS: 36415; 70450; 71045; 80053; 84484; 85025; A9270

== ENCOUNTER → 2022-09-28 | Outpatient (CLI) | payer MEDICARE, OTHER ==
[~2022-09-28] MED LIST changes: +Aspirin EC81 MG PO
[2022-10-02 15:12] LABS: M-SPIKE, % Not Observed % (Not Observed); PROTEIN,TOTAL,URINE <4.0 mg/dL (Not Estab.)
== END | disposition home or self-care (01) ==
LOC: LAB SHORT 09:14 → LAB 09:14
PROVIDERS: Internal Medicine
DX: E87.8 Other disorders of electrolyte and fluid balance, not elsewhere classified (principal)
CPT/HCPCS: 81050; 84156; 84166

== ENCOUNTER 2023-03-11 06:46 | Day surgery (SDC) | payer MEDICARE, OTHER ==
[~2023-03-11] VITALS: Ht 167.6 cm; Wt 71.8 kg
[2023-03-11] MEDS ORDERED: METO50ER PO (07:30)
[2023-03-11 09:11] VITALS: BP 104/49
== END 2023-03-11 09:10 | disposition home or self-care (01) ==
LOC: ORSCSDS 06:46
PROVIDERS: Specialist
PROC: 0DBN8ZX Excision of Sigmoid Colon, Via Natural or Artificial Opening Endoscopic, Diagnostic (ICD-10-PCS; principal; 2023-03-11 08:00)
DX: K62.5 Hemorrhage of anus and rectum (principal); Z86.010 Personal history of colon polyps; K59.00 Constipation, unspecified; K57.30 Diverticulosis of large intestine without perforation or abscess without bleeding; D12.5 Benign neoplasm of sigmoid colon; K64.8 Other hemorrhoids; Z87.19 Personal history of other diseases of the digestive system; Z95.0 Presence of cardiac pacemaker; Z86.73 Personal history of transient ischemic attack (TIA), and cerebral infarction without residual deficits; Z79.01 Long term (current) use of anticoagulants; Z79.899 Other long term (current) drug therapy
CPT/HCPCS: 88305; J2704; J7120

== ENCOUNTER 2023-03-14 14:09 | Emergency (ER) | payer MEDICARE, OTHER ==
[~2023-03-14] VITALS: Ht 167.6 cm; Wt 72.6 kg
[2023-03-14 14:20] VITALS: BP 174/68
== END 2023-03-14 16:44 | disposition home or self-care (01) ==
LOC: ER 14:09
DX: S09.90XA Unspecified injury of head, initial encounter (principal); M54.50 Low back pain, unspecified; G89.29 Other chronic pain; M25.511 Pain in right shoulder; W18.30XA Fall on same level, unspecified, initial encounter; Z88.2 Allergy status to sulfonamides; Z88.8 Allergy status to other drugs, medicaments and biological substances; Z88.1 Allergy status to other antibiotic agents; Z91.030 Bee allergy status; Z88.5 Allergy status to narcotic agent; Z79.01 Long term (current) use of anticoagulants; Z79.899 Other long term (current) drug therapy; Z79.82 Long term (current) use of aspirin; G43.909 Migraine, unspecified, not intractable, without status migrainosus; I48.91 Unspecified atrial fibrillation; E03.9 Hypothyroidism, unspecified; J45.909 Unspecified asthma, uncomplicated; E78.5 Hyperlipidemia, unspecified; F17.210 Nicotine dependence, cigarettes, uncomplicated
CPT/HCPCS: 70450; 72100; 73030; 99283-25